=== PATIENT | female | born 1965 | race Caucasian/White ===

== ENCOUNTER 2020-06-26 19:08 | Observation (INO) | payer BC ==
--- NOTE | 2020-06-26 20:40 | ED ---
General Adult HPI - General Chief complaint: Overdose Stated complaint: Overdose Time Seen by Provider: 06/26/20 20:29 Source: patient Mode of arrival: wheelchair Limitations: no limitations - History of Present Illness Initial comments: Dictation was produced using [email or web address] dictation software. please excuse any grammatical, word or spelling errors. This patient was cared for during a federal and state declared state of emergency secondary to Covid 19 Chief Complaint: 54-year-old female presents to the emergency department for suicidal attempt. History of Present Illness: As a 54-year-old female she presents today after a suicidal attempt. Patient states she overdosed on some of her medications. States she took a handful of her psychiatric pills and muscle relaxant pills.Patient reports she took 6 tizanidine 4 mg pills and 61 mg clonazepam pills along with a lot of wine at approximately 5 PM. She also had some white on top of that. Patient states she is done with life. Patient's history of bipolar disease. Denies any homicidal ideation. No visual auditory hallucinations. The ROS documented in this emergency department record has been reviewed and confirmed by me. Those systems with pertinent positive or negative responses have been documented in the HPI. All other systems are other negative and/or noncontributory. PHYSICAL EXAM: General Impression: Alert and oriented x3, not in acute distress HEENT: Normocephalic atraumatic, extra-ocular movements intact, pupils equal and reactive to light bilaterally, mucous membranes moist. Cardiovascular: Heart regular rate and rhythm Chest: Able to complete full sentences, no retractions, no tachypnea Abdomen: abdomen soft, non-tender, non-distended, no organomegaly Musculoskeletal: Pulses present and equal in all extremities, no peripheral edema Motor: no focal deficits noted Neurological: CN II-XII grossly intact, no focal motor or sensory deficits noted Skin: Intact with no visualized rashes Psych: Tearful, depressed ED course: 54-year-old male presents with overdose. Vital signs upon arrival are within acceptable limits. Physical examination not revealing for any specific toxidrome. EKG interpretation: Ventricular rate 68, normal sinus rhythm,. Interval 194, QRS 80, QTc 440. No MN prolongation, no QTC prolongation, no ST or T-wave changes noted. Overall, this EKG is unremarkable plus control was contacted. They recommend observing patient until 12 AM. Patient does not have any osmolar gap. Initial lactic acidosis 5.1. Patient given intravenous fluids. Repeat lactic acid level was obtained with a measurement of 4.3. Considering that patient still has persistent lactic acidosis without patient admitted to hospitalists for further care. Psychiatry will be consulted for suicidal ideation. EKG interpretation: Ventricular rate 80, normal sinus rhythm,. Interval 94, QRS 80, QTc 440. No MN prolongation, no QTC prolongation, no ST or T-wave changes noted. . Overall, this EKG is unremarkable - Related Data Home Medications Medication Instructions Recorded Confirmed Acetaminophen Tab [Tylenol Tab] 1,000 mg PO Q6HR 04/21/16 04/26/16 Atorvastatin [Lipitor] 40 mg PO HS 04/21/16 04/26/16 Citalopram Hydrobromide 40 mg PO DAILY 04/21/16 04/26/16 [Citalopram HBr] Lansoprazole 30 mg PO DAILY 04/21/16 04/26/16 metFORMIN HCL [Glucophage] 1,000 mg PO BID 04/21/16 04/26/16 Previous Rx's Medication Instructions Recorded Aspirin 325 mg PO BID #60 tab 04/28/16 Hydrocodone/Acetaminophen [[place] 1 - 2 each PO Q6HR PRN #90 tab 04/28/16 5-325] Sennosides-Docusate Sodium 2 tab PO DAILY #60 tablet 04/28/16 [Senokot-S] Allergies Allergy/AdvReac Type Severity Reaction Status Date / Time No Known Allergies Allergy Verified 04/21/16 13:39 Review of Systems ROS Statement: Those systems with pertinent positive or pertinent negative responses have been documented in the HPI. ROS Other: All systems not noted in ROS Statement are negative. Past Medical History Past Medical History: Cancer, Diabetes Mellitus, GERD/Reflux, Hyperlipidemia, Osteoarthritis (OA) Additional Past Medical History / Comment(s): HX SKIN CANCER History of Any Multi-Drug Resistant Organisms: None Reported Past Surgical History: Section, Hysterectomy, Orthopedic Surgery Additional Past Surgical History / Comment(s): ORIF RT ANKLE X 2 Past Anesthesia/Blood Transfusion Reactions: No Reported Reaction Past Psychological History: Bipolar Smoking Status: Current some day smoker Past Alcohol Use History: Occasional Past Drug Use History: None Reported - Past Family History Mother Family Medical History: Cancer General Exam Limitations: no limitations Course Vital Signs 06/26/20 06/26/2021 19:40 20:50 22:00 Temperature 97.7 F Pulse Rate 79 73 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 ] Respiratory 18 18 Rate Blood Pressure 102/66 101/63 O2 Sat by Pulse 97 96 Oximetry Medical Decision Making - Lab Data Result diagrams: 06/26/20 21:01 06/26/20 21:01 Lab Results 06/26/20 06/26/20 06/26/20 Range/Units 21:01 21: 21:01 WBC 7.5 (3.8-10.6) k/uL RBC 4.23 (3.80-5.40) m/uL Hgb 12.5 (11.4-16.0) gm/dL Hct 38.8 (34.0-46.0) % MCV 91.7 (80.0-100.0) fL MCH 29.6 (25.0-35.0) pg MCHC 32.3 (31.0-37.0) g/dL RDW 13.7 (11.5-15.5) % Plt Count 247 (150-450) k/uL MPV 7.4 Neutrophils % 49 % Lymphocytes % 41 % Monocytes % 4 % Eosinophils % 4 % Basophils % 0 % Neutrophils # 3.6 (1.3-7.7) k/uL Lymphocytes # 3.1 (1.0-4.8) k/uL Monocytes # 0.3 (0-1.0) k/uL Eosinophils # 0.3 (0-0.7) k/uL Basophils # 0.0 (0-0.2) k/uL PT 10.3 (9.0-12.0) sec INR 1.0 (<1.2) APTT 24.2 (22.0-30.0) sec Sodium 135 L (137-145) mmol/L Potassium 4.4 (3.5-5.1) mmol/L Chloride 104 (98-107) mmol/L Carbon Dioxide 18 L (22-30) mmol/L Anion Gap 13 mmol/L BUN 16 (7-17) mg/dL Creatinine 0.63 (0.52-1.04) mg/dL Est GFR (CKD-EPI)AfAm >90 (>60 ml/min/1.73 sqM) Est GFR (CKD-EPI)NonAf >90 (>60 ml/min/1.73 sqM) Glucose 91 (74-99) mg/dL Osmolality 301 (280-301) mosm/kg Lactic Ac Sepsis Rflx Plasma Lactic Acid Wade (0.7-2.0) mmol/L Calcium 9.7 (8.4-10.2) mg/dL Magnesium 1.6 (1.6-2.3) mg/dL Total Bilirubin 0.2 (0.2-1.3) mg/dL AST 23 (14-36) U/L ALT 26 (4-34) U/L Alkaline Phosphatase 59 (38-126) U/L Total Protein 7.0 (6.3-8.2) g/dL Albumin 4.2 (3.5-5.0) g/dL Salicylates <1.0 mg/dL Acetaminophen <10.0 ug/mL Serum Alcohol 73 mg/dL 06/26/20 06/26/20 06/26/20 Range/Units 21:01 21:24 23:04 WBC (3.8-10.6) k/uL RBC (3.80-5.40) m/uL Hgb (11.4-16.0) gm/dL Hct (34.0-46.0) % MCV (80.0-100.0) fL MCH (25.0-35.0) pg MCHC (31.0-37.0) g/dL RDW (11.5-15.5) % Plt Count (150-450) k/uL MPV Neutrophils % % Lymphocytes % % Monocytes % % Eosinophils % % Basophils % % Neutrophils # (1.3-7.7) k/uL Lymphocytes # (1.0-4.8) k/uL Monocytes # (0-1.0) k/uL Eosinophils # (0-0.7) k/uL Basophils # (0-0.2) k/uL PT (9.0-12.0) sec INR (<1.2) APTT (22.0-30.0) sec Sodium (137-145) mmol/L Potassium (3.5-5.1) mmol/L Chloride (98-107) mmol/L Carbon Dioxide (22-30) mmol/L Anion Gap mmol/L BUN (7-17) mg/dL Creatinine (0.52-1.04) mg/dL Est GFR (CKD-EPI)AfAm (>60 ml/min/1.73 sqM) Est GFR (CKD-EPI)NonAf (>60 ml/min/1.73 sqM) Glucose (74-99) mg/dL Osmolality (280-301) mosm/kg Lactic Ac Sepsis Rflx Y Plasma Lactic Acid Wade 5.1 H* 4.3 H* (0.7-2.0) mmol/L Calcium (8.4-10.2) mg/dL Magnesium (1.6-2.3) mg/dL Total Bilirubin (0.2-1.3) mg/dL AST (14-36) U/L ALT (4-34) U/L Alkaline Phosphatase (38-126) U/L Total Protein (6.3-8.2) g/dL Albumin (3.5-5.0) g/dL Salicylates mg/dL Acetaminophen ug/mL Serum Alcohol mg/dL Disposition Clinical Impression: Lactic acidosis Disposition: ADMITTED IP TO THIS HOSP Condition: Fair Referrals: Mariposa Willingham DO [Primary Care Provider] - 1-2 days Decision Time: 23:58
[2020-06-26 21:11] LABS: Basophils % (A) 0 %; Eosinophils # (A) 0.3 k/uL (0-0.7); Eosinophils % (A) 4 %; HCT 38.8 % (34.0-46.0); HGB 12.5 gm/dL (11.4-16.0); Lymphocytes # (A) 3.1 k/uL (1.0-4.8); Lymphocytes % (A) 41 %; MCH 29.6 pg (25.0-35.0); MCHC 32.3 g/dL (31.0-37.0); MCV 91.7 fL (80.0-100.0); Mean Platelet Volume 7.4; Monocytes # (A) 0.3 k/uL (0-1.0); Monocytes % (A) 4 %; Neutrophils # (A) 3.6 k/uL (1.3-7.7); Neutrophils % (A) 49 %; Platelet Count 247 k/uL (150-450); RBC 4.23 m/uL (3.80-5.40); RDW 13.7 % (11.5-15.5); WBC 7.5 k/uL (3.8-10.6)
[2020-06-26 21:20] LABS: ALT 26 U/L (4-34); AST 23 U/L (14-36); Acetaminophen <10.0 ug/mL; African American GFR (CKD) >90 (>60 ml/min/1.73 sqM); Albumin 4.2 g/dL (3.5-5.0); Alcohol 73 mg/dL; Alkaline Phosphatase 59 U/L (38-126); Anion Gap 13 mmol/L; Blood Urea Nitrogen 16 mg/dL (7-17); Calcium 9.7 mg/dL (8.4-10.2); Carbon Dioxide 18 mmol/L (22-30); Chloride 104 mmol/L (98-107); Glucose 91 mg/dL (74-99); Magnesium 1.6 mg/dL (1.6-2.3); Non-African American GFR(CKD) >90 (>60 ml/min/1.73 sqM); Potassium 4.4 mmol/L (3.5-5.1); Salicylate <1.0 mg/dL; Sodium 135 mmol/L (137-145); Total Bilirubin 0.2 mg/dL (0.2-1.3)
[2020-06-26 21:26] LABS: Partial Thromboplastin Time 24.2 sec (22.0-30.0); Prothrombin Time 10.3 sec (9.0-12.0)
[2020-06-26] MEDS ORDERED: SODIUM CHLORIDE 0.9% 1,000 ML IV STA ×2 (21:51→23:56)
[2020-06-26] MEDS: SODIUM CHLORIDE 0.9% 1,000 ML IV SCH (23:45)
[2020-06-26] MEDS ORDERED: NALOXONE 0.4 MG/ML 1 ML VIAL IV PRN (23:58)
[2020-06-27 01:49] LABS: Amphetamine Screen,Urine Not Detected (NotDetected); Barbiturate Screen,Urine Not Detected (NotDetected); Benzodiazepines Screen,Urine Detected (NotDetected); Cocaine Screen,Urine Not Detected (NotDetected); Methadone Screen, Urine Not Detected (NotDetected); Opiate Screen,Urine Not Detected (NotDetected); Oxycodone Screen, Urine Not Detected (NotDetected); Phencyclidine Screen,Urine Not Detected (NotDetected); Tricyclic Antidepressant,Urine Not Detected (NotDetected); Urn Cannabinoid Scrn Not Detected (NotDetected)
[2020-06-27] MEDS: SODIUM CHLORIDE 0.9% 1,000 ML IV SCH ×2 (09:06→19:00)
[2020-06-27] MEDS ORDERED: HYDROcodone/APAP 5-325MG 1 EACH TAB PO PRN (11:40)
[2020-06-27] MEDS ORDERED: CITALOPRAM HYDROBROMIDE 20 MG TAB PO SCH (11:45)
[2020-06-27] MEDS ORDERED: SENNOSIDES-DOCUSATE SODIUM 1 EACH TAB PO SCH (11:45)
[2020-06-27] MEDS: metFORMIN 500 MG TAB PO SCH ×2 (13:15→20:53)
[2020-06-27] MEDS: ASPIRIN 325 MG TAB PO SCH ×2 (13:16→20:52)
[2020-06-27] MEDS: ACETAMINOPHEN TAB 500 MG TAB PO SCH ×2 (13:16→17:33)
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
--- NOTE | 2020-06-27 16:13 | P.DS ---
Providers Date of admission: 06/26/20 23:58 Attending physician: Talya Otero Consults: 06/27/20 00:00 Consult Physician Routine Consulting Provider: Joni Bocanegra Consult Reason/Comments: suicidal attempt Do you want consulting provider notified?: Yes Primary care physician: Mariposa Willingham [place] Course: Please refer to my history of present illness for further details Patient Condition at Discharge: Fair Plan - Discharge Summary Discharge Rx Participant: No New Discharge Prescriptions: New sitaGLIPtin PHOSPHATE [Januvia] 50 mg PO DAILY #30 tab Discontinued metFORMIN HCL [Glucophage] 1,000 mg PO BID No Action Acetaminophen Tab [Tylenol Tab] 1,000 mg PO Q6HR Lansoprazole 30 mg PO DAILY Atorvastatin [Lipitor] 40 mg PO HS Citalopram Hydrobromide [Citalopram HBr] 40 mg PO DAILY Aspirin 325 mg PO BID #60 tab Hydrocodone/Acetaminophen [[place] 5-325] 1 - 2 each PO Q6HR PRN #90 tab PRN Reason: Pain Sennosides-Docusate Sodium [Senokot-S] 2 tab PO DAILY #60 tablet Discharge Medication List Acetaminophen Tab [Tylenol Tab] 1,000 mg PO Q6HR 04/21/16 [History] Atorvastatin [Lipitor] 40 mg PO HS 04/21/16 [History] Citalopram Hydrobromide [Citalopram HBr] 40 mg PO DAILY 04/21/16 [History] Lansoprazole 30 mg PO DAILY 04/21/16 [History] Aspirin 325 mg PO BID #60 tab 04/28/16 [Rx] Hydrocodone/Acetaminophen [[place] 5-325] 1 - 2 each PO Q6HR PRN #90 tab 04/28/16 [Rx] Sennosides-Docusate Sodium [Senokot-S] 2 tab PO DAILY #60 tablet 04/28/16 [Rx] sitaGLIPtin PHOSPHATE [Januvia] 50 mg PO DAILY #30 tab 06/27/20 [Rx] Follow up Appointment(s)/Referral(s): Mariposa Willingham DO [Primary Care Provider] - 07/03/20 2:00 pm Discharge Disposition: TRANSFER TO PSYCH HOSP/UNIT
--- NOTE | 2020-06-27 16:13 | P.HPIM ---
History of Present Illness As a 54-year-old female came to ER yesterday after a suicidal attempt. Patient states she overdosed on some of her medications. States she took a handful of her psychiatric pills and muscle relaxant pills.Patient reports she took 6 tizanidine 4 mg pills and 61 mg clonazepam pills along with a lot of wine at approximately 5 PM. She also had some white on top of that. Patient states she is done with life. Patient's history of bipolar disease. Denies any homicidal ideation. No visual auditory hallucinations. Patient was apparently manic earlier today morning. Patient is found to have lactic acidosis and patient does have history of of this medicine patient is on the metformin. Patient is clinically doing well patient is a very pleasant doesn't have suicidal ideations anymore. Patient was evaluated by psychiatric and they're recommending inpatient psychiatric admission. Patient lactic acidosis probably secondary to metformin. No evidence of infection at this time. Patient is more medically stable. Review of Systems REVIEW OF SYSTEMS: CONSTITUTIONAL: No fever, no malaise, no fatigue. HEENT: No recent visual problems or hearing problems. Denied any sore throat. CARDIOVASCULAR: No chest pain, orthopnea, PND, no palpitations, no syncope. PULMONARY: No shortness of breath, no cough, no hemoptysis. GASTROINTESTINAL: No diarrhea, no nausea, no vomiting, no abdominal pain. NEUROLOGICAL: No headaches, no weakness, no numbness. HEMATOLOGICAL: Denies any bleeding or petechiae. GENITOURINARY: Denies any burning micturition, frequency, or urgency. MUSCULOSKELETAL/RHEUMATOLOGICAL: Denies any joint pain, swelling, or any muscle pain. ENDOCRINE: Denies any polyuria or polydipsia. The rest of the 14-point review of systems is negative. Past Medical History Past Medical History: Cancer, Diabetes Mellitus, GERD/Reflux, Hyperlipidemia, Osteoarthritis (OA) Additional Past Medical History / Comment(s): HX SKIN CANCER History of Any Multi-Drug Resistant Organisms: None Reported Past Surgical History: Section, Hysterectomy, Orthopedic Surgery Additional Past Surgical History / Comment(s): ORIF RT ANKLE X 2 Past Anesthesia/Blood Transfusion Reactions: No Reported Reaction Past Psychological History: Bipolar Smoking Status: Never smoker Past Alcohol Use History: Occasional Additional Past Alcohol Use History / Comment(s): SMOKES 1PPD SINCE AGE 13 Past Drug Use History: None Reported - Past Family History Mother Family Medical History: Cancer Medications and Allergies Home Medications Medication Instructions Recorded Confirmed Type Acetaminophen Tab [Tylenol Tab] 1,000 mg PO Q6HR 04/21/16 06/27/20 History Atorvastatin [Lipitor] 40 mg PO HS 04/21/16 06/27/20 History Citalopram Hydrobromide 40 mg PO DAILY 04/21/16 06/27/20 History [Citalopram HBr] Lansoprazole 30 mg PO DAILY 04/21/16 06/27/20 History Aspirin 325 mg PO BID #60 tab 04/28/16 06/27/20 Rx Hydrocodone/Acetaminophen [[place] 1 - 2 each PO Q6HR PRN #90 tab 04/28/16 06/27/20 Rx 5-325] Sennosides-Docusate Sodium 2 tab PO DAILY #60 tablet 04/28/16 06/27/20 Rx [Senokot-S] sitaGLIPtin PHOSPHATE [Januvia] 50 mg PO DAILY #30 tab 06/27/20 Rx Allergies Allergy/AdvReac Type Severity Reaction Status Date / Time No Known Allergies Allergy Verified 04/21/16 13:39 Physical Exam Vitals: Vital Signs Temp Pulse Pulse Resp BP BP Pulse Ox 06/27/20 11:44 97.8 F 69 16 132/70 96 06/27/20 02:00 68 16 104/66 95 06/27/20 00:00 63 16 92/54 96 06/26/20 22:00 73 18 101/63 96 06/26/20 20:50 69 06/26/20 19:40 97.7 F 79 18 102/66 97 Intake and Output 06/27/20 06/27/20 06/27/20 06:59 14:59 22:59 Intake Total 200 Balance 200 Intake: Oral 200 Other: Weight 104.326 kg PHYSICAL EXAMINATION: GENERAL: The patient is alert and oriented x3, not in any acute distress. Well developed, well nourished. HEENT: Pupils are round and equally reacting to light. EOMI. No scleral icterus. No conjunctival pallor. Normocephalic, atraumatic. No pharyngeal erythema. No thyromegaly. CARDIOVASCULAR: S1 and S2 present. No murmurs, rubs, or gallops. PULMONARY: Chest is clear to auscultation, no wheezing or crackles. ABDOMEN: Soft, nontender, nondistended, normoactive bowel sounds. No palpable organomegaly. MUSCULOSKELETAL: No joint swelling or deformity. EXTREMITIES: No cyanosis, clubbing, or pedal edema. NEUROLOGICAL: Gross neurological examination did not reveal any focal deficits. SKIN: No rashes. Results CBC & Chem 7: 06/26/20 21:06/26/20 21:01 Labs: Abnormal Lab Results - Last 24 Hours (Table) 06/26/20 06/26/20 06/26/20 Range/Units 21:01 21:01 23:04 Sodium 135 L (137-145) mmol/L Carbon Dioxide 18 L (22-30) mmol/L Plasma Lactic Acid Wade 5.1 H* 4.3 H* (0.7-2.0) mmol/L U Benzodiazepines Scrn (NotDetected) 06/26/20 06/27/20 Range/Units 23:52 01:30 Sodium (137-145) mmol/L Carbon Dioxide (22-30) mmol/L Plasma Lactic Acid Wade 3.9 H* (0.7-2.0) mmol/L U Benzodiazepines Scrn Detected H (NotDetected) Thrombosis Risk Factor Assmnt - Choose All That Apply Each Factor Represents 1 point: Age 41-60 years Other Risk Factors: No Other congenital or acquired thrombophilia - If yes, enter type in comment: No Thrombosis Risk Factor Assessment Total Risk Factor Score: 1 Thrombosis Risk Factor Assessment Level: Low Risk Assessment and Plan Plan: Interventional overdose: Patient doesn't have any QT prolonging patient patient clinically looks well and medically stable to be discharged to psychiatric floor. -Lactic acidosis secondary to metformin which will be discontinued and patient will be started on Januvia for diabetes mellitus -Gastroesophageal reflux disease -Hyperlipidemia -Depression and suicidal ideation: Management as per psychiatry and patient is medically stable to be discharged to psychiatric floor. Patient is willing to go there voluntarily.
[2020-06-27 16:21] VITALS: BP 111/70; PULSE 88; TEMP 98.5
[2020-06-27] MEDS ORDERED: ATORVASTATIN 40 MG TAB PO SCH (21:00)
[2020-06-27 22:15] VITALS: RESP 18
[2020-06-28] MEDS ORDERED: PANTOPRAZOLE 40 MG TABLET PO SCH (07:30)
[2020-06-28] MEDS ORDERED: CITALOPRAM HYDROBROMIDE 20 MG TAB PO SCH (09:00)
== END 2020-06-27 22:04 ==
LOC: EC 19:08 → 6NMEDSUR 23:58
PROVIDERS: ADMIT Internal Medicine; ATTEND Internal Medicine
DX: E87.2 Acidosis (principal); T38.3X5A Adverse effect of insulin and oral hypoglycemic [antidiabetic] drugs, initial encounter; T14.91XA Suicide attempt, initial encounter; T42.8X2A Poisoning by antiparkinsonism drugs and other central muscle-tone depressants, intentional self-harm, initial encounter; T42.4X2A Poisoning by benzodiazepines, intentional self-harm, initial encounter; F31.60 Bipolar disorder, current episode mixed, unspecified; E11.9 Type 2 diabetes mellitus without complications; K21.9 Gastro-esophageal reflux disease without esophagitis; E78.5 Hyperlipidemia, unspecified; M19.90 Unspecified osteoarthritis, unspecified site; F22 Delusional disorders; F17.210 Nicotine dependence, cigarettes, uncomplicated; Z79.899 Other long term (current) drug therapy; Z79.82 Long term (current) use of aspirin; Z79.84 Long term (current) use of oral hypoglycemic drugs; Z85.828 Personal history of other malignant neoplasm of skin; Z98.890 Other specified postprocedural states; Z90.710 Acquired absence of both cervix and uterus; Z91.5 Personal history of self-harm; Z91.410 Personal history of adult physical and sexual abuse; Z80.9 Family history of malignant neoplasm, unspecified; Z81.8 Family history of other mental and behavioral disorders; Y92.9 Unspecified place or not applicable
CPT/HCPCS: 82075; 96360; 96361; 99285; 36415 ×2; 93005; 83930; 80053; 83605 ×2; 83735; 85025; 85610; 85730; 80306; 83520; 80143; 80320; G0378

== ENCOUNTER 2020-06-27 21:56 | Inpatient (IN) | payer BC ==
[2020-06-27] MEDS ORDERED: MAG HYDROX/AL HYDROX/SIMETH 30 ML CUP PO PRN (22:04)
[2020-06-28 08:50] LABS: Cholesterol 206 mg/dL (<200); HDL Cholesterol 46 mg/dL (40-60); LDL Cholesterol,Calculated 109 mg/dL (0-99); Triglycerides 257 mg/dL (<150)
[2020-06-28] MEDS: LINAGLIPTIN 5 MG TABLET PO SCH ×3 (08:51→10:05)
[2020-06-28] MEDS: ASPIRIN 325 MG TAB PO SCH ×2 (08:51→20:58)
[2020-06-28] MEDS ORDERED: NICOTINE 14MG/24HR PATCH TRANSDERM SCH (09:00)
[2020-06-28] MEDS ORDERED: CITALOPRAM HYDROBROMIDE 20 MG TAB PO SCH (09:00)
[2020-06-28] MEDS: SENNOSIDES-DOCUSATE SODIUM 1 EACH TAB PO SCH (09:11)
--- NOTE | 2020-06-28 11:19 | P.HP ---
Psychiatric H&P - . H&P Date: 06/28/20 History & Physical: IDENTIFYING DATA: Jacqueline is a 54-year-old male transferred from medicine unit voluntarily. HISTORY OF PRESENT ILLNESS: Her sister brought her to the emergency center concerns that she overdosed on prescription medications and alcohol. She stated that she took pills and drinks some wine after a distressing conversation with her [id number]. She dramatically described a conflictual relationship with her kczswy-[id number]-rks. On day of admission her [id number]-[id number] criticized her decision regarding her 's recent hospitalization. Immediately after the telephone conversation she took the medication and drink wine. She told a girlfriend about her actions who in turn told he rssergo in [place] who told her sister in [place] who came to the house and brought her to the hospital. She acknowledges that she took the pills and drinks wine with thoughts of ending her life. She described an impulsive action and denied that she had thought about suicide or self-harm per the conversation with her [id number]. She does have a history of prior suicide attempts by overdose.During our interview she let she could not remember what she had taken she talked about "taking little bit of this and appropriate affect." In the medical admission note she took approximately 24 mg tizanidine and 61 mg a of clonazepam. On presentation to the ED her UDS was positive for benzodiazepine and a serum alcohol level was 73. She has a history of a bipolar illness. She complained that she is primarily depressed but noticed a change in her mood beginning 3 or 4 months ago. She stated she became more upbeat and active. She began showering every day, regained interest in sex and was able to enjoy herself. In retrospect, he stated that she also became more irritable. She also began to steal items over this period of time. She talked about taking random items such as holiday cards and another example a sweater from [employer]. These are items that she could easily afford. She talked about becoming excited that the thought of stealing from the department store. She denied experiencing psychotic symptoms such as hallucinations, confusion or paranoia. She denied persistent use of alcohol and denied use of drugs to get high, help her sleep or change her mood. She was started on citalopram while she was on medicine unit. She stated that she had been treated with citalopram in the past and it was not effective. Prior to admission her outpatient psychiatrist was prescribing Prozac 80 mg daily. PAST PSYCHIATRIC HISTORY: She appears to have while the established diagnoses bipolar illness and has been treated for this diagnosis for approximately 30 years. She first received mental health services when she was an adolescent. She has had 3 or 4 prior psychiatric hospitalizations. Interestingly, she appears not to have been treated with mood stabilizers including lithium, Depakote, Tegretol, Lamictal or any of the second-generation antipsychotics. She meets with a private psychiatrist and a counselor through the [facility] in [facility]. Her psychiatrist apparently increased her antidepressant, Prozac, to 80 mg per day prior to the onset of the apparent hypomanic episode. PAST MEDICAL HISTORY: See medical history and physical ALLERGIES: NO KNOWN DRUG ALLERGIES SUBSTANCE USE HISTORY: She talked about a history of marijuana and hallucinogen abuse. She was admitted to a private substance abuse treatment program in [facility] when she was 26 years old. She denied the use of drugs with the exception of occasional alcohol since she was in the program. FAMILY PSYCHIATRIC/SUBSTANCE USE HISTORY: She is a family history of a depressive disorders LEGAL HISTORY: Denied SOCIAL HISTORY: She is bored or recent intact family. She has 3 sisters. She left school when she was 17 and talked about her struggles with eventually obtaining her high school diploma. She has 2 children from her first marriage. She's been to her current 21 years. 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 MENTAL STATUS EXAM: She presented as a tall casually groomed. He 54-year-old female who looked younger than stated age. She made eye contact and attended the interview. She had no distinguishing features or prominent physical abnormalities. She had a right facial expression. She was alert and oriented to person, place and time. She showed no abnormality of psychomotor activity. She is not restless or agitated. Her speech was spontaneous with increased rate and rhythm. Her speech was not pressured. Her affect was elevated and slightly irritable but appropriate his. She denied current suicidal ideation or wishes. She denied homicidal ideation. She did not express feelings of hopelessness, helplessness or worthlessness. She ruminated about circumstances that this hospitalization her struggles with the maintaining a "normal" mood. She did not express ideas reference, paranoid ideation or delusions. Her thinking was abstract and associations were coherent, logical and goal directed. She denied express clang associations, perseveration or neologisms. She denied hallucinations did not appear to responding to internal stimuli. Global impression of intellect is average. She is aware of illness and need for treatment. STRENGTHS: Stable housing, stable income, supportive relationships, engagement with mental health services WEAKNESSES: Long history of mental health and mental health treatment IMPRESSION: She is a 54-year-old female presented to the psychiatric unit on transfer from the medicine unit where she was treated or a suicide attempt by overdose of alcohol and prescription medications. She has a long history of mental health problems beginning in adolescence with several prior hospitalizations. She described a change her mood over the last 3-4 months prior to admission that may coincide with a increased dose of her antidepressant. She described symptoms suggestive of a hypomanic episode with increased energy, activity and engagement in behaviors that could result in legal consequences. The suicide attempt was impulsive following an argument with her [id number]. She benefit from inpatient treatment with combination of psychopharmacology and multimodal therapy. 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 Seek precautions. Consult medicine for initial physical exam and medical history. child care worker completed initial psychosocial assessment coordinate discharge and aftercare. Restart Prozac 20 mg daily, discontinue citalopram, begin Lamictal 25 mg daily and titrated to clinical response and tolerance. Encourage participation in therapeutic groups and activities. Evaluate clinical status response to treatment daily basis. Allergies Allergy/AdvReac Type Severity Reaction Status Date / Time No Known Allergies Allergy Verified 06/27/20 23:45 Vital Signs Temp 97.2 F L 06/28/20 06:04 Pulse 59 L 06/28/20 06:04 Resp 16 06/27/20 22:39 BP 146/65 06/28/20 06:04 Pulse Ox 98 06/27/20 22:39 Intake & Output 06/27/20 06/28/20 06/28/20 18:59 06:59 18:59 Weight 93.468 kg Laboratory Last Values Triglycerides 257 mg/dL (<150) H 06/28/20 07:51 Cholesterol 206 mg/dL (<200) H 06/28/20 07:51 LDL Cholesterol, Calc 109 mg/dL (0-99) H 06/28/20 07:51 HDL Cholesterol 46 mg/dL (40-60) 06/28/20 07:51 Coronavirus (PCR) Not Detected (Not Detectd) 06/28/20 00:00 06/28/20 10:53
[2020-06-28] MEDS: lamoTRIgine 25 MG TAB PO SCH (12:07)
--- NOTE | 2020-06-28 14:00 | P.CONS ---
History of Present Illness - Reason for Consult Medical clearance - History of Present Illness Patient is pleasant 54-year-old female was transferred from my service to psychiatric floor. after she attempted suicide with multiple medications. Patient is comparing of some fatigue beyond that patient denied any fever chills nausea vomiting abdominal pain dysuria. Patient says she does have history of coronary artery disease and that did have stents in the past. Review of Systems REVIEW OF SYSTEMS: CONSTITUTIONAL: No fever, no malaise. HEENT: No recent visual problems or hearing problems. Denied any sore throat. CARDIOVASCULAR: No chest pain, orthopnea, PND, no palpitations, no syncope. PULMONARY: No shortness of breath, no cough, no hemoptysis. GASTROINTESTINAL: No diarrhea, no nausea, no vomiting, no abdominal pain. NEUROLOGICAL: No headaches, no weakness, no numbness. HEMATOLOGICAL: Denies any bleeding or petechiae. GENITOURINARY: Denies any burning micturition, frequency, or urgency. MUSCULOSKELETAL/RHEUMATOLOGICAL: Denies any joint pain, swelling, or any muscle pain. ENDOCRINE: Denies any polyuria or polydipsia. The rest of the 14-point review of systems is negative. Past Medical History Past Medical History: Cancer, Diabetes Mellitus, GERD/Reflux, Hyperlipidemia, Osteoarthritis (OA) Additional Past Medical History / Comment(s): HX SKIN CANCER History of Any Multi-Drug Resistant Organisms: None Reported Past Surgical History: Section, Heart Catheterization With Stent, Hysterectomy, Orthopedic Surgery Additional Past Surgical History / Comment(s): ORIF RT ANKLE X 2, total left hip 2017 Past Anesthesia/Blood Transfusion Reactions: No Reported Reaction Date of Last Stent Placement:: 2017 Past Psychological History: Bipolar Smoking Status: Never smoker Past Alcohol Use History: Occasional Past Drug Use History: None Reported - Past Family History Mother Family Medical History: Cancer Medications and Allergies Home Medications Medication Instructions Recorded Confirmed Type Acetaminophen Tab [Tylenol Tab] 1,000 mg PO Q6HR 04/21/16 06/27/20 History Atorvastatin [Lipitor] 40 mg PO HS 04/21/16 06/27/20 History Citalopram Hydrobromide 40 mg PO DAILY 04/21/16 06/27/20 History [Citalopram HBr] Lansoprazole 30 mg PO DAILY 04/21/16 06/27/20 History Aspirin 325 mg PO BID #60 tab 04/28/16 06/27/20 Rx Hydrocodone/Acetaminophen [Jasper 1 - 2 each PO Q6HR PRN #90 tab 04/28/16 06/27/20 Rx 5-325] Sennosides-Docusate Sodium 2 tab PO DAILY #60 tablet 04/28/16 06/27/20 Rx [Senokot-S] sitaGLIPtin PHOSPHATE [Januvia] 50 mg PO DAILY #30 tab 06/27/20 06/27/20 Rx Allergies Allergy/AdvReac Type Severity Reaction Status Date / Time No Known Allergies Allergy Verified 06/27/20 23:45 Physical Exam Vitals: Vital Signs Temp Pulse Resp BP Pulse Ox 06/28/20 06:04 97.2 F L 59 L 146/65 06/27/20 22:39 97.8 F 67 16 121/79 98 Intake and Output 06/27/20 06/28/20 06/28/20 22:59 06:59 14:59 Other: Weight 93.468 kg PHYSICAL EXAMINATION: GENERAL: The patient is alert and oriented x3, not in any acute distress. Well developed, well nourished. HEENT: Pupils are round and equally reacting to light. EOMI. No scleral icterus. No conjunctival pallor. Normocephalic, atraumatic. No pharyngeal erythema. No thyromegaly. CARDIOVASCULAR: S1 and S2 present. No murmurs, rubs, or gallops. PULMONARY: Chest is clear to auscultation, no wheezing or crackles. ABDOMEN: Soft, nontender, nondistended, normoactive bowel sounds. No palpable organomegaly. MUSCULOSKELETAL: No joint swelling or deformity. EXTREMITIES: No cyanosis, clubbing, or pedal edema. NEUROLOGICAL: Gross neurological examination did not reveal any focal deficits. SKIN: No rashes. Results Labs: Abnormal Lab Results - Last 24 Hours (Table) 06/28/20 Range/Units 07:51 Triglycerides 257 H (<150) mg/dL Cholesterol 206 H (<200) mg/dL LDL Cholesterol, Calc 109 H (0-99) mg/dL Assessment and Plan Plan: -Type 2 diabetes mellitus: Patient will be continued on Januvia Accu-Cheks twice a day -coronary artery disease patient will be started on aspirin 81 mg, statin, isosorbide mononitrate 30 mg daily. Patient was supposed to take metoprolol as well as her heart rate is already in 5060s Minardi much beneficial even post OK. -Hyperlipidemia -Depression and suicide attempt: Management as per primary service
[2020-06-28 14:21] LABS: Hemoglobin A1C 5.9 % (4.0-6.0)
[2020-06-28] MEDS: ACETAMINOPHEN TAB 325 MG TAB PO PRN (17:08)
[2020-06-28] MEDS ORDERED: NAPROXEN 250 MG TAB PO STA ×3 (17:47→18:47)
[2020-06-28] MEDS: ATORVASTATIN 40 MG TAB PO SCH (20:58)
[2020-06-28] MEDS: LORazepam 1 MG TAB PO PRN (21:00)
[2020-06-29 07:49] LABS: Glucose,Whole Blood 92 mg/dL (75-99)
[2020-06-29] MEDS: ISOSORBIDE MONONITRATE ER 30 MG TAB.ER.24H PO SCH (08:08)
[2020-06-29] MEDS: lamoTRIgine 25 MG TAB PO SCH (08:08)
[2020-06-29] MEDS: FLUoxetine HCL 20 MG CAP PO SCH (08:08)
[2020-06-29] MEDS: LINAGLIPTIN 5 MG TABLET PO SCH (08:08)
[2020-06-29] MEDS: ASPIRIN 325 MG TAB PO SCH (08:08)
[2020-06-29] MEDS ORDERED: ASPIRIN 81 MG PO SCH (09:00)
[2020-06-29] MEDS: SENNOSIDES-DOCUSATE SODIUM 1 EACH TAB PO SCH (09:08)
--- NOTE | 2020-06-29 14:40 | P.PN ---
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 She was concerned about medical treatment reviewed the medications recommended when she was discharged from medicine service. She requested to resume her primary admission dose of aspirin. She also questioned why the physicians has discontinued metformin and started Trajenta. She denied feeling depressed or having thoughts of or suicide. She talked about the circumstances that led to her impulsive overdose. She feels that she overreacted to the comments her sister made about his recent hospitalization. She stated that she often "overreacts" when she has "manic". She is attending therapeutic groups and activities. She slept 8 hours last night. Mental status exam: She presented as a tall and stocky 54-year-old woman who was pleasant on approach. She made eye contact and attended the interview. She showed no abnormality of psychomotor activity. Her speech was spontaneous with slight increased rate and rhythm. Her speech was not pressured. Her affect was elevated but not) appropriate. She denied suicidal ideation and wishes. She did not express ideas reference, paranoid ideation or delusions. Her thinking was abstract and associations were coherent, logical and goal directed. She denied hallucinations did not appear to be responding to internal stimuli. Assessment: She continues to have signs and symptoms of hypomania. Plan: Inpatient treatment. Safety precautions. Continue Prozac 20 mg daily and Lamictal 25 mg daily. Titrate the latter according to clinical response and tolerance. Decrease aspirin 81 mg daily. Continue indoor 30 mg daily, Trajenta5 mg daily and Senokot S daily.
[2020-06-29] MEDS: ATORVASTATIN 40 MG TAB PO SCH (19:59)
[2020-06-29] MEDS: LORazepam 1 MG TAB PO PRN (20:00)
[2020-06-29] MEDS ORDERED: NAPROXEN 250 MG TAB PO STA (20:00)
[2020-06-29 20:07] LABS: Glucose,Whole Blood 117 mg/dL (75-99)
[2020-06-29] MEDS: ACETAMINOPHEN TAB 325 MG TAB PO PRN (21:30)
[2020-06-30] MEDS: LORazepam 1 MG TAB PO PRN ×2 (01:59→21:38)
[2020-06-30 07:48] LABS: Glucose,Whole Blood 86 mg/dL (75-99)
[2020-06-30] MEDS: ASPIRIN 81 MG PO SCH (08:48)
[2020-06-30] MEDS: FLUoxetine HCL 20 MG CAP PO SCH (08:48)
[2020-06-30] MEDS: LINAGLIPTIN 5 MG TABLET PO SCH (08:48)
[2020-06-30] MEDS: lamoTRIgine 25 MG TAB PO SCH ×2 (08:48→21:34)
[2020-06-30] MEDS: SENNOSIDES-DOCUSATE SODIUM 1 EACH TAB PO SCH (08:48)
[2020-06-30] MEDS: ISOSORBIDE MONONITRATE ER 30 MG TAB.ER.24H PO SCH (08:48)
[2020-06-30] MEDS ORDERED: NAPROXEN 250 MG TAB PO PRN (10:07)
--- NOTE | 2020-06-30 10:19 | P.PN ---
Progress Note - Text Progress Note Date: 06/30/20 Interval History: Patient was seen attending group and was directable and agreeable to speak with bid writer in the office. Patient reports that she feels like she is slightly better. She does report that she had difficulty sleeping last night. She attributes her difficulty sleeping to her racing thoughts. She continues to express some mood lability and irritability. She does express concern about discharge stating that she wants the symptoms to be better controlled. She is not reporting any suicidal or homicidal ideation, intention, and/or plan. She is denying any auditory or visual hallucinations. She denies any paranoia or delusions. She has been adherent with her medications and is not reporting any significant side effects. We discussed at length treatment options for the management of bipolar disorder, and the patient is agreeable to starting a trial of Seroquel and having her Lamictal titrated. Mental Status Exam: General Appearance: Patient appears to be stated age is alert, directable, and cooperative. Patient is of a tall and stocky build. Good hygiene and grooming. Behavior: Patient is calmly seated without any agitated behavior. Speech: Patient's speech is fluent and nonpressured. Mood/Affect: Mood is "doing great but sleep." affect is congruent, slightly expansive, almost euphoric. Suicidality/Homicidality: Patient is not endorsing any suicidal or homicidal ideation, intention, and/or plan. Perceptions: Patient denies any auditory or visual hallucinations. Though content/process: There is no evidence of any delusional thought content and thought process is linear and goal-directed. Memory and concentration: AOX3, grossly intact for the purposes of this session Judgment and insight: Improving mildly Assessment Bipolar disorder, type II, current episode depressed Plan: -Patient continues to meet criteria for inpatient psychiatric admission for symptom stabilization and safety. Patient has signed adult voluntary form and medication consent and was placed in patient's chart. -Medications: We'll continue Prozac 20 mg by mouth daily for management of depression/anxiety Increase Lamictal to 25 mg by mouth twice a day for management of bipolar disorder We will start Seroquel 50 mg by mouth at bedtime for mood stability As per patient preference, we will increase Aleve to 500 mg as needed for pain. -When necessary Ativan and Haldol for agitation/aggression. -NRT - nicotine patch -SW on board for discharge planning. Encouraged the patient to participate in milieu.
[2020-06-30 19:59] LABS: Glucose,Whole Blood 136 mg/dL (75-99)
[2020-06-30] MEDS ORDERED: QUEtiapine 50 MG TAB PO SCH (21:00)
[2020-06-30] MEDS: ATORVASTATIN 40 MG TAB PO SCH (21:34)
[2020-07-01 06:54] VITALS: RESP 17
[2020-07-01 07:48] LABS: Glucose,Whole Blood 74 mg/dL (75-99)
[2020-07-01] MEDS: ISOSORBIDE MONONITRATE ER 30 MG TAB.ER.24H PO SCH (08:03)
[2020-07-01] MEDS: LINAGLIPTIN 5 MG TABLET PO SCH (08:03)
[2020-07-01] MEDS: SENNOSIDES-DOCUSATE SODIUM 1 EACH TAB PO SCH (08:03)
[2020-07-01] MEDS: lamoTRIgine 25 MG TAB PO SCH (08:03)
[2020-07-01] MEDS: ASPIRIN 81 MG PO SCH (08:03)
[2020-07-01] MEDS: FLUoxetine HCL 20 MG CAP PO SCH (08:03)
[2020-07-01 08:05] VITALS: BP 130/69; PULSE 99
--- NOTE | 2020-07-01 08:06 | P.PN ---
Progress Note - Text Progress Note Date: 07/01/20 Interval History: Patient was seen this morning in the hallways and was directable and agreeable to speak with public relations writer in the office. Patient is stating that she feels much better today in terms of her mood and claims that she was able to sleep better last night. She claims that the Seroquel dose is "good where it's sad". She states that she's been talking with other people on the unit and also going to groups. She states that she has a "million reasons to live" and spoke about her grandchildren and her . She claims that the racing thoughts of been improving. She had several questions about her medications and public relations writer discussed the side effects and rationale for their use. Phlebotomist specifically spoke about the side effect of a rash with Lamictal and warned patient to monitor her skin and seek urgent medical attention if she sees a rash, patient verbally understood and agreed. She is not reporting any suicidal or homicidal ideation, intention, and/or plan. She is denying any auditory or visual hallucinations. She denies any paranoia or delusions. She has been adherent with her medications and is not reporting any significant side effects. Mental Status Exam: General Appearance: Patient appears to be stated age is alert, directable, and cooperative. Patient is of a tall and stocky build. Good hygiene and grooming. Behavior: Patient is calmly seated without any agitated behavior. Speech: Patient's speech is fluent and nonpressured. Mood/Affect: Mood is "better" affect is congruent Suicidality/Homicidality: Patient is not endorsing any suicidal or homicidal ideation, intention, and/or plan. Perceptions: Patient denies any auditory or visual hallucinations. Though content/process: There is no evidence of any delusional thought content and thought process is linear and goal-directed. Memory and concentration: AOX3, grossly intact for the purposes of this session Judgment and insight: Improving mildly Assessment Bipolar disorder, type II, current episode depressed Plan: -Patient continues to meet criteria for inpatient psychiatric admission for symptom stabilization and safety. Patient has signed adult voluntary form and medication consent and was placed in patient's chart. -Medications: Continue Prozac 20 mg by mouth daily for management of depression/anxiety, continue with Lamictal 25 mg by mouth twice a day for management of bipolar disorder, continue Seroquel 50 mg by mouth at bedtime for mood stability -When necessary Ativan and Haldol for agitation/aggression. -NRT - nicotine patch -SW on board for discharge planning. Encouraged the patient to participate in milieu. Patient is set for discharge today back home. Patient follows up at [facility] for psych outpt services. Patients to pick her up today upon discharge.
[2020-07-01 12:44] VITALS: TEMP 98
--- NOTE | 2020-07-03 09:45 | P.DS ---
Providers Date of admission: 06/27/20 21:56 Expected date of discharge: 07/01/20 Attending physician: Joni Bocanegra MD Consults: 06/27/20 22:07 Consult Physician Routine Consulting Provider: Orlando Bledsoe Consult Reason/Comments: h&p and medical management Do you want consulting provider notified?: Yes, Notify in am Primary care physician: Mariposa Begumel - Discharge Diagnosis(es) (1) Bipolar 2 disorder, major depressive episode Status: Acute Priority: High Hospital Course: Admission HPI: Initial psychiatric evaluation was completed by Dr. Espinoza on 06/28/2020 who wrote: "Jacqueline is a 54-year-old male transferred from medicine unit voluntarily. HISTORY OF PRESENT ILLNESS: Her sister brought her to the emergency center concerns that she overdosed on prescription medications and alcohol. She stated that she took pills and drinks some wine after a distressing conversation with her vxgpfc-ug-lrm. She dramatically described a conflictual relationship with her pquffv-rn-mbp. On day of admission her wcyzij-uc-bwg criticized her decision regarding her 's recent hospitalization. Immediately after the telephone conversation she took the medication and drink wine. She told a girlfriend about her actions who in turn told he rsister in [place] who told her sister in [place] who came to the house and brought her to the hospital. She acknowledges that she took the pills and drinks wine with thoughts of ending her life. She described an impulsive action and denied that she had thought about suicide or self-harm per the conversation with her wzlsep-so-eux. She does have a history of prior suicide attempts by overdose.During our interview she let she could not remember what she had taken she talked about "taking little bit of this and appropriate affect." In the medical admission note she took approximately 24 mg tizanidine and 61 mg a of clonazepam. On presentation to the ED her UDS was positive for benzodiazepine and a serum alcohol level was 73. She has a history of a bipolar illness. She complained that she is primarily depressed but noticed a change in her mood beginning 3 or 4 months ago. She stated she became more upbeat and active. She began showering every day, regained interest in sex and was able to enjoy herself. In retrospect, he stated that she also became more irritable. She also began to steal items over this period of time. She talked about taking random items such as holiday cards and another example a sweater from [email or web address]. These are items that she could easily afford. She talked about becoming excited that the thought of stealing from the department store. She denied experiencing psychotic symptoms such as hallucinations, confusion or paranoia. She denied persistent use of alcohol and denied use of drugs to get high, help her sleep or change her mood. She was started on citalopram while she was on medicine unit. She stated that she had been treated with citalopram in the past and it was not effective. Prior to admission her outpatient psychiatrist was prescribing Prozac 80 mg daily." Hospital course: Upon admission to the unit patient was initially calm, cooperative, with an elevated and slightly irritable affect. Patient was however directable and agreeable to commence treatment. Working diagnosis of bipolar disorder with most recent episode being hypomanic versus an antidepressant induced hypomanic episode. The patient was initiated on Lamictal and the patient's Prozac was restarted at 20 mg by mouth daily while citalopram was discontinued. The patient continued to express some irritability and difficulty sleeping and Seroquel was started at bedtime all her Lamictal was gradually titrated. Over the course of the hospitalization, the patient gradually improved in terms of mood stability, sleep, and irritability. On the day of discharge, the patient is not endorsing any suicidal or homicidal ideation, intention, and/or plan. She is reporting no access to firearms or other weapons. She reports that she has been sleeping and eating well. She has been adherent with her medications and is not reporting any significant side effects. She expresses a strong desire to live for her family. The patient has not been endorsing any auditory or visual hallucinations. She reported no delusions or paranoia. The patient was counseled on abstaining from all substances including alcohol and marijuana. She was counseled on the need for compliance on her medication and regular follow-up. Prior to discharge, family meeting will be arranged by the vp digital marketing social media and crm to answer any questions and ensure safety upon discharge. The patient was discharged with a regimen of Lamictal 25 mg by mouth twice a day, Seroquel 50 mg daily at bedtime, Prozac 20 mg by mouth daily for management of bipolar disorder, type II. Mental status exam: General Appearance: Patient appears to be stated age is alert, pleasant, and cooperative. Patient is in no acute distress and has fair hygiene and grooming patient is a very tall and stocky build. Good hygiene and grooming. Behavior: Patient is calmly seated without any agitated behavior. Speech: Patient's speech is fluent and nonpressured. Mood/Affect: Patient reports their mood is "much better", affect is congruent and euthymic to bright. Suicidality/Homicidality: Patient denies having any suicidal or homicidal ideation intent or plan. Perceptions: Patient denies any auditory or visual hallucinations. Though content/process: There is no evidence of any delusional thought content and thought process is linear and goal-directed. She is future oriented. Memory and concentration: AOX3, grossly intact for the purposes of this session. Can spell "WORLD" backwards correctly. Judgment and insight: Improved Impression: Poor disorder, type II, current episode depressed Plan: -Continue with discharge today as patient has improved and stabilized psychiatrically and is not currently an imminent threat to herself and/or others. Patient will remain at chronically elevated risk for harm to self and/or others due to her prior attempt at suicide that led to this admission. -Continue medications: Seroquel 50 mg daily at bedtime for mood stabilization Prozac 20 mg by mouth daily for depression/anxiety Lamictal 25 mg by mouth twice a day for bipolar disorder -Patient was counseled on the need for medication compliance and appropriate follow-up at mental health and also primary care for medical issues. Patient verbalized understanding and agreed. -Social work to arrange for and conduct family meeting to ensure safety upon discharge and answer any questions/concerns. Social work also to arrange for patients follow up appointments [facility] for psychiatric care along with follow up with primary care provider. -Patient counseled on abstaining from recreational drugs and marijuana and alcohol. Was informed/educated on the adverse effects on their physical and mental health. Patient verbally agreed and understood. -Patient was instructed to return to the hospital or seek immediate medical care if their psychiatric or medical symptoms do worsen or reoccur. -Psychoeducation and supportive therapy provided to patient. Risks and benefits of pharmacological treatment versus the risks and benefits of nontreatment weight and discussed. Informed consent discussion held. Common side effects of psychotropics discussed such as, but not limited to headache, GI disturbance, sexual dysfunction, movement disorders, sedation, and orthostatic hypotension. Life threatening and blackbox warnings of prescribed medications also discussed. Potential risks of operating a vehicle or heavy machinery discussed with patient at length. Advised on importance of compliance and a reliable and responsible manner. Patient advised to review FDA consumer labeling of all medications prior to taking. Patient verbalized understanding of potential risks, and agrees with current treatment plan. Patient advised to medically contact physician/emergency personnel if any acute changes in condition occur. Vital Signs Temp 98.0 F 07/01/20 12:00 Pulse 99 07/01/20 08:00 Resp 17 07/01/20 06:53 BP 130/69 07/01/20 08:00 Pulse Ox 97 07/01/20 06:53 Laboratory Results POC Glucose (mg/dL) 74 mg/dL (75-99) L 07/01/20 07:47 POC Glu Crib Pad Maker ID Nona Morris 07/01/20 07:[address] Glu mg/dL 123 06/28/20 07:51 Hemoglobin A1c 5.9 % (4.0-6.0) 06/28/20 07:51 Triglycerides 257 mg/dL (<150) H 06/28/20 07:51 Cholesterol 206 mg/dL (<200) H 06/28/20 07:51 LDL Cholesterol, Calc 109 mg/dL (0-99) H 06/28/20 07:51 HDL Cholesterol 46 mg/dL (40-60) 06/28/20 07:51 Coronavirus (PCR) Not Detected (Not Detectd) 06/28/20 00:00 Allergies Allergy/AdvReac Type Severity Reaction Status Date / Time No Known Allergies Allergy Verified 06/27/20 23:45 Patient Condition at Discharge: Stable Plan - Discharge Summary New Discharge Prescriptions: New Aspirin 81 mg PO DAILY 30 Days chew Isosorbide Mononitrate ER [Imdur] 30 mg PO DAILY 30 Days tab.er.24h lamoTRIgine [LaMICtal] 25 mg PO BID 30 Days tab Atorvastatin [Lipitor] 40 mg PO HS 30 Days tab FLUoxetine HCL [PROzac] 20 mg PO DAILY 30 Days cap QUEtiapine [SEROquel] 50 mg PO HS 30 Days tab Continue Hydrocodone/Acetaminophen [Furlong 5-325] 1 - 2 each PO Q6HR PRN #90 tab PRN Reason: Pain Sennosides-Docusate Sodium [Senokot-S] 2 tab PO DAILY #60 tablet sitaGLIPtin PHOSPHATE [Januvia] 50 mg PO DAILY #30 tab Discontinued Acetaminophen Tab [Tylenol Tab] 1,000 mg PO Q6HR Lansoprazole 30 mg PO DAILY Citalopram Hydrobromide [Citalopram HBr] 40 mg PO DAILY Aspirin 325 mg PO BID #60 tab No Action Atorvastatin [Lipitor] 40 mg PO HS Discharge Medication List Atorvastatin [Lipitor] 40 mg PO HS 04/21/16 [History] Hydrocodone/Acetaminophen [Furlong 5-325] 1 - 2 each PO Q6HR PRN #90 tab 04/28/16 [Rx] Sennosides-Docusate Sodium [Senokot-S] 2 tab PO DAILY #60 tablet 04/28/16 [Rx] Aspirin 81 mg PO DAILY 30 Days chew 06/30/20 [Rx] Atorvastatin [Lipitor] 40 mg PO HS 30 Days tab 06/30/20 [Rx] FLUoxetine HCL [PROzac] 20 mg PO DAILY 30 Days cap 06/30/20 [Rx] Isosorbide Mononitrate ER [Imdur] 30 mg PO DAILY 30 Days tab.er.24h 06/30/20 [Rx] QUEtiapine [SEROquel] 50 mg PO HS 30 Days tab 06/30/20 [Rx] lamoTRIgine [LaMICtal] 25 mg PO BID 30 Days tab 06/30/20 [Rx] sitaGLIPtin PHOSPHATE [Januvia] 50 mg PO DAILY #30 tab 06/30/20 [Rx] Follow up Appointment(s)/Referral(s): [facility] [employer] [Outside] - 07/03/20 1:00 pm ([place]) [facility] [NON-STAFF] - 1 Week Patient Instructions/Handouts: Bipolar Disorder (DC) Activity/Diet/Wound Care/Special Instructions: Activity and diet as tolerated. Avoid the use of street drugs and alcohol. Take all medications as prescribed. When you are in need of refills on your medications please contact your medical provider and/or outpatient psychiatrist to have this done. Please go to scheduled outpatient appointment for aftercare treatment. If symptoms return or become worse, call the crisis line at and/or go to the nearest emergency room for evaluation. Discharge Disposition: HOME SELF-CARE
== END 2020-07-01 12:47 | disposition home or self-care (01) | DRG 885 ==
LOC: 3MHU 21:56
PROVIDERS: ADMIT Psychiatry & Neurology Psychiatry; ATTEND Psychiatry & Neurology Psychiatry
DX: F31.81 Bipolar II disorder (principal); F31.0 Bipolar disorder, current episode hypomanic; E11.9 Type 2 diabetes mellitus without complications; E78.5 Hyperlipidemia, unspecified; F30.8 Other manic episodes; I25.10 Atherosclerotic heart disease of native coronary artery without angina pectoris; Z79.82 Long term (current) use of aspirin; Z79.84 Long term (current) use of oral hypoglycemic drugs; Z79.899 Other long term (current) drug therapy; Z85.828 Personal history of other malignant neoplasm of skin; Z90.710 Acquired absence of both cervix and uterus; Z91.5 Personal history of self-harm; Z20.822 Contact with and (suspected) exposure to COVID-19
CPT/HCPCS: 80061; 83036; 87635

== ENCOUNTER → 2023-02-09 | Outpatient (CLI) | payer BC ==
[2023-02-09 12:50] LABS: Partial Thromboplastin Time 22.4 sec (22.0-30.0); Prothrombin Time 10.2 sec (9.0-12.0)
[2023-02-09 15:30] LABS: Appearance,Urine Clear (Clear); Bilirubin,Urine Negative (Negative); Blood,Urine Negative (Negative); Color,Urine Yellow (Yellow); Ketones,Urine Trace (Negative); Nitrite,Urine Negative (Negative); PH, Urine 7.5; Specific Gravity,Urine 1.019 (1.001-1.030); Urobilinogen,Urine 0.2 E.U./DL
[2023-02-09 15:31] LABS: ALT 21 U/L (8-44); AST 24 U/L (13-35); Albumin 4.5 d/dL (3.8-4.9); Albumin/Globulin Ratio 1.96 Ratio (1.60-3.17); Alkaline Phosphatase 62 U/L (41-126); BUN/Creat Ratio 22.43 Ratio (12.00-20.00); Blood Urea Nitrogen 15.7 mg/dL (9.0-27.0); Calcium 9.9 mg/dL (8.7-10.3); Carbon Dioxide 26.2 mmol/L (21.6-31.8); Chloride 103 mmol/L (96-109); Globulin 2.3 d/dL (1.6-3.3); Glucose 91 mg/dL (70-110); Potassium 4.8 mmol/L (3.5-5.5); Sodium 139 mmol/L (135-145); Total Bilirubin 0.3 mg/dL (0.3-1.2); Total Protein 6.8 d/dL (6.2-8.2)
[2023-02-09 15:36] LABS: Bacteria,Urine None Seen (None Seen)
== END | disposition home or self-care (01) ==
LOC: LABPAT 11:55
PROVIDERS: ATTEND Orthopaedic Surgery
DX: Z01.812 Encounter for preprocedural laboratory examination (principal); M16.12 Unilateral primary osteoarthritis, left hip
CPT/HCPCS: 36415; 80053; 81001; 85610; 85730; 87070

== ENCOUNTER 2023-02-21 07:19 | Observation (INO) | payer BC ==
[~2023-02-21 07:19] MED LIST: ACETAMINOPHEN TAB 500 MG TAB PO PRN; DEXAMETHASONE SOD PHOSPHATE 4 MG/ML 1 ML VIAL IV ONE; GABAPENTIN 300 MG CAP PO PRN; HYDROmorphone 0.5 MG/0.5 ML SYRINGE IVP PRN; LIDOCAINE 1% (10MG/ML) FOR IV START INTRADERMA PRN; MELOXICAM 7.5 MG TAB PO PRN; MIDAZOLAM 2 MG/2 ML VIAL IV PRN; ONDANSETRON 4 MG/2 ML VIAL IVP ONE; TRANEXAMIC 1,000 MG/100ML-NACL 1,000 MG in SALINE 1 100ML.BAG IVPB PRN
[2023-02-21 08:16] LABS: Glucose,Whole Blood 99 mg/dL (70-110)
[2023-02-21 08:25] LABS: Basophils % (A) 0 %; Eosinophils # (A) 0.2 k/uL (0-0.7); Eosinophils % (A) 3 %; HCT 41.2 % (34.0-46.0); HGB 13.5 gm/dL (11.4-16.0); Lymphocytes # (A) 2.4 k/uL (1.0-4.8); Lymphocytes % (A) 38 %; MCH 30.5 pg (25.0-35.0); MCHC 32.7 g/dL (31.0-37.0); MCV 93.3 fL (80.0-100.0); Mean Platelet Volume 7.7; Monocytes # (A) 0.3 k/uL (0-1.0); Monocytes % (A) 4 %; Neutrophils # (A) 3.3 k/uL (1.3-7.7); Neutrophils % (A) 54 %; Platelet Count 250 k/uL (150-450); RBC 4.42 m/uL (3.80-5.40); RDW 12.9 % (11.5-15.5); WBC 6.2 k/uL (3.8-10.6)
[2023-02-21] MEDS ORDERED: MIDAZOLAM 2 MG/2 ML VIAL IVP ONE (08:34)
[2023-02-21] MEDS: LACTATED RINGERS 1,000 ML IV SCH (08:45)
[2023-02-21] MEDS ORDERED: DEXAMETHASONE SOD PHOSPHATE 4 MG/ML 1 ML VIAL ONE (09:30)
[2023-02-21] MEDS ORDERED: PHENYLEPHRINE-0.9% NACL SYG 1,000 MCG/10 ML SYRINGE ONE (09:30)
[2023-02-21] MEDS ORDERED: TRANEXAMIC 1,000 MG/100ML-NACL PREMIX BAG ONE (09:30)
[2023-02-21] MEDS ORDERED: fentaNYL (PF) 50 MCG/ML 2 ML AMP ONE (09:30)
[2023-02-21] MEDS ORDERED: ROPIVACAINE 5 MG/ML 30 ML VIAL ONE (09:30)
[2023-02-21] MEDS ORDERED: PROPOFOL 10 MG/ML 20 ML VIAL IV ONE (09:30)
[2023-02-21] MEDS ORDERED: MIDAZOLAM 2 MG/2 ML VIAL ONE (09:30)
[2023-02-21] MEDS ORDERED: SODIUM CHLORIDE 0.9% (PF) 10 ML VIAL ONE (09:30)
[2023-02-21] MEDS ORDERED: ceFAZolin 1,000 MG in SODIUM CHLORIDE 0.9% 1,000 ML IRRIGATION ONE (09:35)
[2023-02-21] MEDS ORDERED: ROPIVACAINE 5 MG/ML 30 ML VIAL MISCELLANE ONE (10:45)
--- NOTE | 2023-02-21 10:48 | P.OP ---
Date of Procedure: 02/21/23 Preoperative Diagnosis: Severe osteoarthritis left hip Postoperative Diagnosis: Severe osteoarthritis left hip Procedure(s) Performed: Left total hip arthroplasty with direct anterior approach Implants: [employer]hew Polarstem standard size 2 [employer]hew R3, 3 hole hemispherical acetabular shell, 52 mm [employer]hew Reflection 6.5 mm cancellus screw, 20 mm 2 [employer]hew R3, XLPE 20 acetabular liner [employer] Nephew Oxinium femoral head 36 m, +0 All components were press-fit. The articulation is Oxinium on polyethylene. Anesthesia: spinal Surgeon: Surya Charlton Construction Engineering Manager #1: Krista Dugan Estimated Blood Loss (ml): 200 Pathology: none sent Condition: stable Disposition: PACU Indications for Procedure: After failure of conservative treatment we discussed the surgical and nonsurgical treatment options at length. Patient wishes to proceed with a total hip arthroplasty with a direct anterior approach. Complications specific to this procedure were discussed at length, including but not limited to infection, leg length discrepancy, dislocation, nerve injury, and fracture. Covid-19 was also discussed at length with the patient, and they are aware of the current policies and procedures. The patient was given the option of delaying surgery, but they elect to proceed knowing these risks. Patient is aware of all these complications and informed consent was obtained Operative Findings: The operative findings are consistent with severe osteoarthritis the left hip Description of Procedure: The patient was seen and evaluated in the preoperative area and the consent was reviewed. The operative site was marked with a skin marker. The patient verified the procedure and operative site. A EMEKA block was placed by anesthesia in the preoperative area. The patient was then brought to the operating room and given preoperative antibiotics intravenously. 1 g of Tranexamic acid was also given intravenously. A spinal anesthetic was administered by the anesthesia department. The patient was then placed on the Satsuma table with the bony prominences well-padded. The hip area was then prepped with a ChloraPrep solution and draped in the usual sterile fashion. A universal timeout was then performed, which confirmed the patient's name, surgical site, ALLERGIES, and procedure being performed on the consent. Next the incision site was located at 1 cm distal and 4 cm lateral to the anterior superior iliac spine. The skin and subcutaneous tissues were sharply incised. Incision was carefully dissected down to the fascia overlying the tensor fascia nj muscle. This fascia was then incised in line with the muscle fibers. Care was taken to stay laterally in order to avoid injuring the lateral femoral cutaneous nerve. Next, using blunt finger dissection, the tensor fascia nj muscle was dissected off its investing fascia. The muscle was then carefully retracted laterally with a cobra retractor over the lateral neck of the femur. Next, the circumflex vessels were identified and cauterized using the Aquamantis device. The anterior hip capsule was then exposed. The capsule was then opened and an inverted T fashion. The retractors were then placed intracapsularly. The retractors were maintained intracapsular throughout the procedure. The proximal femur was then visualized. Fluoroscopic x-rays were then taken in order to evaluate the preoperative leg lengths. A small amount of traction was placed on the leg. The femoral neck was then osteotomized at the appropriate level above the lesser trochanter. A small wedge of bone was then removed from the remaining femoral head. Next, using a corkscrew the femoral head was removed from the acetabulum. On gross visual inspection, the femoral head had complete loss of articular cartilage and multiple periarticular osteophytes. The femoral head was then measured. Attention was then turned to the acetabulum. The acetabulum was exposed and any remaining labrum was excised. Sequential reaming of the acetabulum was performed using fluoroscopic guidance until there was a good bed of bleeding cancellus bone. When the appropriate size was reached, a trial was then placed. The position and fit of the trial was checked with fluoroscopy. The trial was then removed. Then, using fluoroscopic guidance, the final implant was impacted at 20 of anteversion and 40 of abduction, and fully seated in the acetabulum. 2 screws were then placed in the acetabulum. Again fluoroscopy was used to check position of the screws. Next, the liner was then impacted, with a 20 elevated liner located in the anterior superior quadrant. Component locking was confirmed. Attention was then directed to the femur. With the aid of the Satsuma table, the femur was externally rotated to approximately 130, extended, and adducted under the opposite leg. A side hook was then placed under the proximal femur, and the side hook elevator was used to elevate the proximal femur while releasing the capsule. Retractors were then placed. A capsular release was performed, as well as a release of the conjoined tendon, which afforded excellent visualization of the proximal femur. Next, a box osteotome was used to lateralize the proximal femur. A hand buffing wheel former was then used to locate the femoral canal. Sequential broaching was then performed with appropriate size w hich afforded excellent fixation in the proximal femur. A trial was then placed with appropriate head and neck, and the hip was gently reduced with the aid of the Satsuma table. Fluoroscopy was then used to check position of the components, as well as to evaluate the leg lengths and offset. The leg lengths and offset were measured as closely as possible to ensure stability of the hip. The hip was then gently dislocated and the trials were then removed. Final implants were then impacted and the hip was again reduced. Final fluoroscopic x-rays confirmed that the components were in anatomic position. The leg lengths and offset were measured and were found to coincide with the trial measurements. The hip was also taken through range of motion, and found to be stable. The hip was then copiously irrigated with antibiotic solution with pulsatile lavage. The hip was then irrigated with Irrisept solution. The soft tissues were then injected with a ropivacaine solution. A second dose of 1 g of Tranexamic acid was also given intravenously. The fascia was then closed with 2-0 strata fix suture. The subcutaneous tissue was closed with 3-0 Vicryl. The subcuticular tissue was closed with 3-0 strata fix suture. The skin was then closed with Exofin skin glue. After the glue and dried, and Optifoam silver impregnated dressing was applied. The patient was then transferred to the recovery room in stable condition. The healthcare administrative assistant TRICIA Jones was required due to the complexity of surgery, and the need for skilled surgical dressing maker for positioning, draping, exposure, retraction, and closure of the wound.
--- NOTE | 2023-02-21 11:04 | XR ---
Fluoroscopy History: LT anterior hip Left anterior total hip. 26 sec fl. 1.4803 DAP
[2023-02-21] MEDS ORDERED: NALOXONE 0.4 MG/ML 1 ML VIAL IV PRN (11:12)
[2023-02-21] MEDS ORDERED: HYDROmorphone 0.5 MG/0.5 ML SYRINGE IVP PRN ×2 (11:12)
[2023-02-21] MEDS ORDERED: MAGNESIUM HYDROXIDE 2,400 MG/30 ML CUP PO PRN (11:12)
[2023-02-21] MEDS ORDERED: ONDANSETRON 4 MG/2 ML VIAL IVP PRN (11:12)
[2023-02-21] MEDS ORDERED: HYDROcodone/APAP 7.5-325MG 1 EACH TAB PO PRN (11:14)
[2023-02-21] MEDS ORDERED: HYDROmorphone 0.5 MG/0.5 ML SYRINGE IVP ONE (11:29)
--- NOTE | 2023-02-21 12:15 | XR ---
EXAMINATION TYPE: XR Hip Limited LT DATE OF EXAM: 02/21/2023 CLINICAL HISTORY: Postoperative evaluation TECHNIQUE: Single portable view of the left hip was submitted. FINDINGS: Noted are changes of total hip arthroplasty with femoral and acetabular components appearin g well seated. Alignment is anatomic. Postsurgical soft tissue changes are evident. IMPRESSION: Satisfactory postoperative alignment
[2023-02-21] MEDS ORDERED: HYDROcodone/APAP 7.5-325MG 1 EACH TAB PO ONE (12:47)
--- NOTE | 2023-02-21 13:49 | P.ANPRN ---
Procedure Note - Anesthesia - Nerve Block Performed Left Ziggy Single Date of Procedure: 02/21/23 Procedure Start Time: 08:33 Procedure Stop Time: 08:41 Indication: Acute Post-Operative Pain, Requested by Surgeon Sedation Type: Sedate with meaningful contact maintained Preparation: Sterile Prep Position: Supine Catheter: None Needle Types: Facet Needle Gauge: 21 Ultrasound used to visualize needle placement: Yes Ultrasound used to observe medication spread: Yes Injectate: 0.5% Ropivacaine (see comment for volume) Blood Aspirated: No Pain Paresthesia on Injection Noted: No Resistance on Injection: Normal Image Stored and Saved: Yes Events: Uneventful and Well Tolerated (15 mls+ 10 mls NS+ Decadron 4 mgs)
[2023-02-21] MEDS: HYDROmorphone 1 MG/ML 1 ML SYRINGE IVP PRN ×4 (14:37→23:34)
[2023-02-21] MEDS ORDERED: LACTATED RINGERS 1,000 ML IV ONE (14:44)
[2023-02-21 16:22] LABS: Glucose,Whole Blood 168 mg/dL (70-110)
[2023-02-21] MEDS: SODIUM CHLORIDE 0.9% 1,000 ML IV SCH (17:29)
[2023-02-21] MEDS: HYDROcodone/APAP 7.5-325MG 1 EACH TAB PO PRN (18:32)
[2023-02-21] MEDS: SENNOSIDES-DOCUSATE SODIUM 1 EACH TAB PO SCH (20:19)
[2023-02-21] MEDS: ASPIRIN 81 MG PO SCH (20:19)
[2023-02-21 20:54] LABS: Glucose,Whole Blood 131 mg/dL (70-110)
[2023-02-21] MEDS: LORazepam 1 MG TAB PO PRN (22:25)
[2023-02-22] MEDS: HYDROcodone/APAP 7.5-325MG 1 EACH TAB PO PRN ×3 (00:27→18:00)
[2023-02-22] MEDS: HYDROmorphone 1 MG/ML 1 ML SYRINGE IVP PRN ×3 (02:31→19:23)
[2023-02-22] MEDS: LACTATED RINGERS 1,000 ML IV SCH (02:34)
[2023-02-22] MEDS: SODIUM CHLORIDE 0.9% 1,000 ML IV SCH ×2 (02:34→11:51)
[2023-02-22 06:22] LABS: Glucose,Whole Blood 130 mg/dL (70-110)
[2023-02-22] MEDS: ASPIRIN 81 MG PO SCH ×2 (08:33→20:32)
[2023-02-22] MEDS: CLOPIDOGREL 75 MG TAB PO SCH (08:33)
[2023-02-22] MEDS: LORazepam 1 MG TAB PO PRN ×2 (08:37→20:32)
[2023-02-22] MEDS ORDERED: KETOROLAC 15 MG/ML 1 ML VIAL IVP PRN (08:57)
[2023-02-22] MEDS: METOPROLOL TARTRATE 25 MG TAB PO SCH ×2 (09:57→20:32)
[2023-02-22] MEDS: metFORMIN 500 MG TAB PO SCH ×2 (09:57→17:06)
[2023-02-22] MEDS: ISOSORBIDE MONONITRATE ER 30 MG TAB.ER.24H PO SCH (09:57)
[2023-02-22] MEDS: KETOROLAC 15 MG/ML 1 ML VIAL IVP SCH ×2 (09:57→20:32)
--- NOTE | 2023-02-22 10:57 | P.PN ---
Subjective Progress Note Date: 02/22/23 This is a 57-year-old female who is status post left total hip arthroplasty. This is postoperative day #1 and patient is seen and evaluated at bedside with Dr. Surya Charlton. Patient states that she is quite sore in the left hip, but was able to work physical therapy today. Patient denies any fever/chills, numbness, weakness, tingling, abdominal pain, shortness of breath or chest pain. Objective - Vital Signs Vital signs: Vital Signs Temp 98.3 F 02/22/23 08:00 Pulse 73 02/22/23 08:00 Resp 23 02/22/23 08:00 BP 115/69 02/22/23 08:00 Pulse Ox 97 02/22/23 08:00 FiO2 Intake & Output 02/21/23 02/22/23 02/22/23 18:59 06:59 18:59 Intake Total 1551 Output Total 1000 Balance 551 Weight 92.2 kg Intake: IV 1551 Output: Urine 800 Estimated Blood Loss 200 Other: Voiding Method Toilet # Voids 4 - Exam Vital signs are stable. Patient is in no acute distress and is alert and oriented 3. Calf is soft and nontender to palpation. Dressing is clean, dry, and intact. Patient has full foot and ankle motion without pain or difficulty. Sensation intact. Neurovascular status and circulatory status are intact. - Labs CBC & Chem 7: 02/21/23 08:14 Labs: Abnormal Lab Results - Last 24 Hours (Table) 02/21/23 02/21/23 02/22/23 Range/Units 16:20 20:52 06:20 POC Glucose (mg/dL) 168 H 131 H 130 H (70-110) mg/dL Assessment and Plan (1) Osteoarthritis of left hip Current Visit: Yes Status: Acute Code(s): M16.12 - UNILATERAL PRIMARY OSTEOARTHRITIS, LEFT HIP SNOMED Code(s): 899564772320902 (2) S/P total hip arthroplasty Current Visit: Yes Status: Acute Code(s): Z96.649 - PRESENCE OF UNSPECIFIED ARTIFICIAL HIP JOINT SNOMED Code(s): 630467369263 Plan: Continue routine postop care and pain control. Patient has resumed Plavix daily and is also taking aspirin twice daily for DVT prophylaxis. Weightbearing as tolerated with a walker. Leave dressing in place for 7 days. Appreciate input from medicine. Anticipate discharge home with homecare tomorrow.
[2023-02-22 11:06] LABS: Glucose,Whole Blood 127 mg/dL (70-110)
[2023-02-22] MEDS ORDERED: PANTOPRAZOLE 40 MG TABLET PO PRN (11:42)
[2023-02-22] MEDS: LACTOBACILLUS ACIDOPHILUS/PECT 1 EACH CAPSULE PO SCH (11:48)
[2023-02-22 12:13] LABS: Basophils # (A) 0.02 X 10*3/uL (0.00-0.10); Basophils % (A) 0.2 %; Eosinophils # (A) 0.01 X 10*3/uL (0.04-0.35); Eosinophils % (A) 0.1 %; HCT 34.9 % (37.2-46.3); HGB 11.8 d/dL (12.0-15.0); Lymphocytes # (A) 1.77 X 10*3/uL (0.90-5.00); Lymphocytes % (A) 16.4 %; MCH 31.3 pg (27.0-32.0); MCHC 33.8 d/dL (32.0-37.0); MCV 92.6 FL (80.0-97.0); Mean Platelet Volume 11.4 FL (9.5-12.2); Monocytes # (A) 0.71 X 10*3/uL (0.20-1.00); Monocytes % (A) 6.6 %; NRBC Per 100 WBC 0 X 10*3/uL (0.00-0.01); Neutrophils # (A) 8.23 X 10*3/uL (1.80-7.70); Neutrophils % (A) 76.2 %; Platelet Count 175 X 10*3/uL (140-440); RBC 3.77 X 10*6/uL (4.10-5.20); RBC Morphology Normal (Normal); RDW 12.7 % (11.5-14.5); WBC 10.79 X 10*3/uL (4.50-10.00)
--- NOTE | 2023-02-22 16:03 | P.CONS ---
History of Present Illness - Reason for Consult Consult date: 02/22/23 Medical management Requesting physician: Surya Charlton - Chief Complaint Left hip surgery - History of Present Illness Pleasant 57-year-old patient, follows with Dr. Mariposa Willingham. Chronic stable medical conditions include CAD with stent, COPD, diabetes, GERD, hypertension. Patient is currently stent was a was 5 years ago. Patient is undergoing left total hip arthroplasty. Painful at the operative site. No nausea vomiting. No chest pain no shortness of breath. Sitting up in a chair. Review of systems: GEN.: None EYES: None HEENT: None NECK: None RESPIRATORY: None CARDIOVASCULAR: None GASTROINTESTINAL: None GENITOURINARY: None MUSCULOSKELETAL: Joint pains LYMPHATICS: None HEMATOLOGICAL: None PSYCHIATRY: None NEUROLOGICAL: None Past medical history to include: CAD with stent, COPD, diabetes, GERD, hypertension, hyperlipidemia GERD, osteoarthritis. Bipolar. ADHD. Social history: . Patient smoked for 37 years stopped in 2016. Alcohol rarely. Physical examination: VITAL SIGNS: 96.7, 56, 16, 114/66, 97% room air GENERAL: BMI 29.2, sitting up in a chair reclining awake. EYES: Pupils equal. Conjunctiva normal. HEENT: External appearance of nose and ears normal, oral cavity grossly normal. NECK: JVD not raised; masses not palpable. HEART: First and second heart sounds are normal; no edema. LUNGS: Respiratory rate normal; decreased breath sound. ABDOMEN: Soft, nontender, liver spleen not palpable, no masses palpable. PSYCH: Alert and oriented x3; mood and affect normal. MUSCULOSKELETAL:No Clubbing/cyanosis;muscles-grossly intact. UA. Dressing over left hip incision site NEUROLOGICAL: Cranial nerves grossly intact; no facial asymmetry, power and sensation grossly intact. LYMPHATICS: No lymph nodes palpable in the axilla and neck INVESTIGATIONS, reviewed in the clinical context: February 22: White count 10.7 hemoglobin 11.8 platelets 175 February 21: White count 6.2 hemoglobin 13.5 platelets 250 February 09: Potassium 4.8 creatinine 0.7 Assessment plan: --Left total hip arthroplasty Pain control. Aspirin twice a day for DVT prophylaxis per surgery -CAD with a prior history of stent. Approximately 5 years ago. Aspirin. Lipitor. Plavix. Lopressor -Primary osteoarthritis Pain control when necessary -Bipolar disorder Prozac 80 mg daily at bedtime Ativan when necessary -GERD Prevacid -Essential hypertension Metoprolol 25 mg twice a day -Hyperlipidemia Crestor 40 mg a day -Diabetes mellitus type 2 on oral hypoglycemic Glucophage. Follow Accu-Cheks with sliding skill insulin. Home medications resumed. Discussed with patient. Follow Accu-Cheks. Thank you Dr. Charlton Past Medical History Past Medical History: Coronary Artery Disease (CAD), Cancer, COPD, Diabetes Mellitus, GERD/Reflux, Hyperlipidemia, Osteoarthritis (OA) Additional Past Medical History / Comment(s): NIDDM type II, skin cancer with removal History of Any Multi-Drug Resistant Organisms: None Reported Past Surgical History: Section, Heart Catheterization, Heart Catheterization With Stent, Hysterectomy, Joint Replacement, Orthopedic Surgery Additional Past Surgical History / Comment(s): ORIF RT ANKLE X 2 for crushed ankle/hardware since removed, total right hip 2017 Past Anesthesia/Blood Transfusion Reactions: No Reported Reaction Date of Last Stent Placement:: 2017 Past Psychological History: ADD/ADHD, Bipolar Smoking Status: Former smoker Past Alcohol Use History: Rare Additional Past Alcohol Use History / Comment(s): Pt started smoking in 1978 and quit in 2015 Past Drug Use History: Marijuana Additional Drug Use History / Comment(s): Past smoked marijuana and then once a few days ago/one hit. - Past Family History Mother Family Medical History: Cancer Additional Family Medical History / Comment(s): Kidney cancer with mets. Medications and Allergies Home Medications Medication Instructions Recorded Confirmed Type Ascorbic Acid [Vitamin C] 1,000 mg PO DAILY 02/18/23 02/21/23 History Aspirin 81 mg PO QAM 02/18/23 02/21/23 History Cholecalciferol (Vitamin D3) 50 mcg PO QAM 02/18/23 02/21/23 History [Vitamin D3 (50 Mcg = 2000 Iu) Chew Tab] Clopidogrel [Plavix] 75 mg PO QAM 02/18/23 02/21/23 History Collagen Powder 2 tsp PO DAILY 02/18/23 02/21/23 History Cyanocobalamin (Vitamin B-12) 2,500 mcg PO DAILY 02/18/23 02/21/23 History [Vitamin B-12] FLUoxetine HCL [PROzac] 80 mg PO HS 02/18/23 02/21/23 History HYDROcodone/APAP 7.5-325MG [Belva 1 tab PO Q4-6H PRN 02/18/23 02/21/23 History 7.5-325] Isosorbide Mononitrate ER [Imdur] 30 mg PO QAM 02/18/23 02/21/23 History L.acidoph,Paracasei, B.lactis 1 cap PO DAILY 02/18/23 02/21/23 History [Probiotic] LORazepam [Ativan] 1 tab PO QID PRN 02/18/23 02/21/23 History Lansoprazole [Prevacid] 30 mg PO QAM PRN 02/18/23 02/21/23 History Magnesium Oxide [Magnesium] 500 mg PO QAM 02/18/23 02/21/23 History Meloxicam [Mobic] 15 mg PO DAILY PRN 02/18/23 02/21/23 History Metoprolol Tartrate 25 mg PO BID 02/18/23 02/21/23 History Multivitamins, Thera [Multivitamin 1 tab PO DAILY 02/18/23 02/21/23 History (formulary)] Proplant Complete Shake 1 dose PO DAILY 02/18/23 02/21/23 History Rosuvastatin Calcium [Crestor] 40 mg PO QAM 02/18/23 02/21/23 History Vitamin E (Dl,Tocopheryl Acet) 1 cap PO DAILY 02/18/23 02/21/23 History [Vitamin E (400 Iu = 180 mg)] Zinc Gluconate [Zinc] 50 mg PO QAM 02/18/23 02/21/23 History metFORMIN HCL [Glucophage] 500 mg PO BID 02/18/23 02/21/23 History Aspirin [Adult Low Dose Aspirin EC] 81 mg PO BID 30 Days #60 tab 02/21/23 Rx HYDROcodone/APAP 7.5-325MG [Belva 1 - 2 tab PO Q6H PRN #32 tab 02/21/23 Rx 7.5-325] Sennosides [Senokot] 2 tab PO DAILY PRN #60 tablet 02/21/23 Rx Allergies Allergy/AdvReac Type Severity Reaction Status Date / Time No Known Allergies Allergy Verified 02/21/23 08:07 Physical Exam Vitals: Vital Signs Temp Pulse Resp BP Pulse Ox 02/22/23 14:00 96.7 F L 56 L 16 114/66 97 02/22/23 08:00 98.3 F 73 23 115/69 97 02/22/23 02:00 97.8 F 57 L 114/71 96 02/21/23 20:00 98.2 F 63 18 112/68 96 02/21/23 17:01 97.7 F 64 17 122/69 98 Intake and Output 02/22/23 02/22/23 02/22/23 06:59 14:59 22:59 Other: # Voids 4 Results CBC & Chem 7: 02/22/23 07:02 Labs: Abnormal Lab Results - Last 24 Hours (Table) 02/21/23 02/21/23 02/22/23 Range/Units 16:20 20:52 06:20 WBC (4.50-10.00) X 10*3/uL RBC (4.10-5.20) X 10*6/uL Hgb (12.0-15.0) d/dL Hct (37.2-46.3) % Neutrophils # (1.80-7.70) X 10*3/uL Eosinophils # (0.04-0.35) X 10*3/uL POC Glucose (mg/dL) 168 H 131 H 130 H (70-110) mg/dL 02/22/23 02/22/23 Range/Units 07:02 11:04 WBC 10.79 H (4.50-10.00) X 10*3/uL RBC 3.77 L (4.10-5.20) X 10*6/uL Hgb 11.8 L (12.0-15.0) d/dL Hct 34.9 L (37.2-46.3) % Neutrophils # 8.23 H (1.80-7.70) X 10*3/uL Eosinophils # 0.01 L (0.04-0.35) X 10*3/uL POC Glucose (mg/dL) 127 H (70-110) mg/dL
[2023-02-22 16:25] LABS: Glucose,Whole Blood 112 mg/dL (70-110)
[2023-02-22] MEDS: FLUoxetine HCL 20 MG CAP PO SCH (20:32)
[2023-02-22] MEDS: SENNOSIDES-DOCUSATE SODIUM 1 EACH TAB PO SCH (20:32)
[2023-02-22 20:57] LABS: Glucose,Whole Blood 115 mg/dL (70-110)
[2023-02-22] MEDS ORDERED: ZOLPIDEM 5 MG TAB PO PRN (23:21)
[2023-02-23] MEDS: HYDROcodone/APAP 7.5-325MG 1 EACH TAB PO PRN ×4 (02:39→19:50)
[2023-02-23] MEDS: SODIUM CHLORIDE 0.9% 1,000 ML IV SCH ×2 (03:20→19:42)
[2023-02-23] MEDS: LACTATED RINGERS 1,000 ML IV SCH (03:21)
[2023-02-23 06:24] LABS: Glucose,Whole Blood 85 mg/dL (70-110)
[2023-02-23] MEDS: MAGNESIUM OXIDE 400 MG TAB PO SCH (08:04)
[2023-02-23] MEDS: CYANOCOBALAMIN 500 MCG TAB PO SCH (08:04)
[2023-02-23] MEDS: ZINC SULFATE 220 MG CAP PO SCH (08:04)
[2023-02-23] MEDS: METOPROLOL TARTRATE 25 MG TAB PO SCH ×2 (08:04→21:05)
[2023-02-23] MEDS: ASPIRIN 81 MG PO SCH (08:04)
[2023-02-23] MEDS: LACTOBACILLUS ACIDOPHILUS/PECT 1 EACH CAPSULE PO SCH (08:04)
[2023-02-23] MEDS: ATORVASTATIN 80 MG TAB PO SCH (08:04)
[2023-02-23] MEDS: CHOLECALCIFEROL 25 MCG (1000 IU) TABLET PO SCH (08:04)
[2023-02-23] MEDS: MULTIVITAMINS, THERA 1 EACH TAB PO SCH (08:05)
[2023-02-23] MEDS: CLOPIDOGREL 75 MG TAB PO SCH (08:05)
[2023-02-23] MEDS: ISOSORBIDE MONONITRATE ER 30 MG TAB.ER.24H PO SCH (08:05)
[2023-02-23] MEDS: VITAMIN E (DL,TOCOPHERYL ACET) 400 UNIT (180 MG) CAP PO SCH (08:05)
[2023-02-23] MEDS: KETOROLAC 15 MG/ML 1 ML VIAL IVP SCH ×2 (08:05→21:05)
[2023-02-23] MEDS: metFORMIN 500 MG TAB PO SCH ×2 (08:05→17:11)
[2023-02-23] MEDS: ASCORBIC ACID 500 MG TAB PO SCH (08:24)
[2023-02-23] MEDS: diazePAM 5 MG TAB PO PRN ×3 (09:31→21:04)
--- NOTE | 2023-02-23 09:31 | P.PN ---
Subjective Progress Note Date: 02/23/23 This is a 57-year-old female who is status post left total hip arthroplasty. This is postoperative day #2 and patient is seen and evaluated at bedside with Dr. Surya Charlton. Patient states that she has been able to work with physical therapy, but still has quite a bit of pain in the right hip. Patient denies any new complaints today. Objective - Vital Signs Vital signs: Vital Signs Temp 99.2 F 02/23/23 07:29 Pulse 67 02/23/23 07:29 Resp 19 02/23/23 07:29 BP 129/79 02/23/23 07:29 Pulse Ox 99 02/23/23 07:29 FiO2 Intake & Output 02/22/23 02/23/23 02/23/23 18:59 06:59 18:59 Other: Voiding Method Toilet # Voids 6 2 - Exam Vital signs are stable. Patient is in no acute distress and is alert and oriented 3. Calf is soft and nontender to palpation. Dressing is clean, dry, and intact. Patient has full foot and ankle motion without pain or difficulty. Sensation intact. Neurovascular status and circulatory status are intact. - Labs CBC & Chem 7: 02/22/23 07:02 Labs: Abnormal Lab Results - Last 24 Hours (Table) 02/22/23 02/22/23 02/22/23 Range/Units 07:02 11:04 16:22 WBC 10.79 H (4.50-10.00) X 10*3/uL RBC 3.77 L (4.10-5.20) X 10*6/uL Hgb 11.8 L (12.0-15.0) d/dL Hct 34.9 L (37.2-46.3) % Neutrophils # 8.23 H (1.80-7.70) X 10*3/uL Eosinophils # 0.01 L (0.04-0.35) X 10*3/uL POC Glucose (mg/dL) 127 H 112 H (70-110) mg/dL 02/22/23 Range/Units 20:54 WBC (4.50-10.00) X 10*3/uL RBC (4.10-5.20) X 10*6/uL Hgb (12.0-15.0) d/dL Hct (37.2-46.3) % Neutrophils # (1.80-7.70) X 10*3/uL Eosinophils # (0.04-0.35) X 10*3/uL POC Glucose (mg/dL) 115 H (70-110) mg/dL Assessment and Plan (1) Osteoarthritis of left hip Current Visit: Yes Status: Acute Code(s): M16.12 - UNILATERAL PRIMARY OSTEOARTHRITIS, LEFT HIP SNOMED Code(s): 523738264746447 (2) S/P total hip arthroplasty Current Visit: Yes Status: Acute Code(s): Z96.649 - PRESENCE OF UNSPECIFIED ARTIFICIAL HIP JOINT SNOMED Code(s): 715610860084 Plan: Continue routine postop care and pain control. Patient has resumed Plavix daily and is also taking aspirin twice daily for DVT prophylaxis. Weightbearing as tolerated with a walker. Leave dressing in place for 7 days. Appreciate input from medicine. Continue physical therapy. Anticipate discharge home with homecare later today or tomorrow.
[2023-02-23] MEDS: HYDROmorphone 1 MG/ML 1 ML SYRINGE IVP PRN ×2 (10:25→18:35)
[2023-02-23 11:16] LABS: Glucose,Whole Blood 138 mg/dL (70-110)
--- NOTE | 2023-02-23 15:09 | P.PN ---
Progress Note - Text Progress Note Date: 02/23/23 - Chief Complaint Left hip surgery Hospital course: Pleasant 57-year-old patient, follows with Dr. Mariposa Willingham. Chronic stable medical conditions include CAD with stent, COPD, diabetes, GERD, hypertension. Coronary stent about 5 years ago. Underwent left total hip arthroplasty. Painful at the operative site. No nausea vomiting. No chest pain no shortness of breath. Sitting up in a chair. February 23: This morning patient has significant nausea and pain. Has been up to the bathroom. Did eat some. No chest pain and breathing stable. Hinojosa discontinued. Did get up in a chair. Active Medications Hydrocodone Bitart/Acetaminophen (Hydrocodone/Apap 7.5-325mg 1 Each Tab) 1 each PO Q6H PRN PRN Reason: Pain Scale 1 to 5 Stop: 03/23/23 11:15 Hydrocodone Bitart/Acetaminophen (Hydrocodone/Apap 7.5-325mg 1 Each Tab) 2 each PO Q6H PRN PRN Reason: Pain Scale 6 to 10 Stop: 03/23/23 11:15 Last Admin: 02/23/23 13:36 Dose: 2 each Ascorbic Acid (Ascorbic Acid 500 Mg Tab) 1,000 mg PO DAILY [facility] Last Admin: 02/23/23 08:24 Dose: 1,000 mg Aspirin (Aspirin 81 Mg) [address] [facility] Last Admin: 02/23/23 08:04 Dose: 81 mg Atorvastatin Calcium (Atorvastatin 80 Mg Tab) [address] [facility] Last Admin: 02/23/23 08:04 Dose: 80 mg Cholecalciferol (Cholecalciferol 25 Mcg (1000 Iu) Tablet) [facility] Last Admin: 02/23/23 08:04 Dose: 50 mcg Clopidogrel Bisulfate (Clopidogrel 75 Mg Tab) 75 mg PO DAILY [facility] Stop: 03/24/23 09:01 Last Admin: 02/23/23 08:05 Dose: 75 mg Cyanocobalamin (Cyanocobalamin 500 Mcg Tab) 2,500 mcg PO DAILY [facility] Last Admin: 02/23/23 08:04 Dose: 2,500 mcg Diazepam (Diazepam 5 Mg Tab) 5 mg PO TID PRN PRN Reason: Pain Last Admin: 02/23/23 09:31 Dose: 5 mg Fluoxetine HCl (Fluoxetine Hcl 20 Mg Cap) 80 mg PO [facility] Last Admin: 02/22/23 20:32 Dose: 80 mg Hydromorphone HCl (Hydromorphone 0.5 Mg/0.5 Ml Syringe) 0.5 mg IVP Q3HR PRN PRN Reason: Pain Scale 4 to 6 Stop: 03/23/23 11:13 Hydromorphone HCl (Hydromorphone 1 Mg/Ml 1 Ml Syringe) 1 mg IVP Q3HR PRN PRN Reason: Pain Scale 7 to 10 Stop: 03/23/23 11:13 Last Admin: 02/23/23 10:25 Dose: 1 mg Hydromorphone HCl (Hydromorphone 0.5 Mg/0.5 Ml Syringe) 0.25 mg IVP Q3HR PRN PRN Reason: Pain Scale 1 to 3 Stop: 03/23/23 11:13 Lactated Ringer's (Lactated Ringers) 1,000 mls @ 20 mls/hr IV .Q24H [facility] Last Admin: 02/23/23 03:21 Dose: Not Given Sodium Chloride (Saline 0.9%) 1,000 mls @ 70 mls/hr IV .[id number] [facility] Stop: 03/23/23 11:16 Last Admin: 02/23/23 03:20 Dose: Not Given Isosorbide Mononitrate (Isosorbide Mononitrate Er 30 Mg Tab.Er.24h) 30 mg PO QAM [facility] Last Admin: 02/23/23 08:05 Dose: 30 mg Ketorolac Tromethamine (Ketorolac 15 Mg/Ml 1 Ml Vial) 15 mg IVP BID [facility] Stop: 02/27/23 09:01 Last Admin: 02/23/23 08:05 Dose: 15 mg Lactobacillus Acidophilus (Lactobacillus Acidophilus/Pect 1 Each Capsule) 1 each PO DAILY [facility] Last Admin: 02/23/23 08:04 Dose: 1 each Lidocaine HCl (Lidocaine 1% (10mg/Ml) For Iv Start) 0.1 ml INTRADERMA PER PROTOCOL PRN PRN Reason: IV Start Lorazepam (Lorazepam 1 Mg Tab) 1 mg PO QID PRN PRN Reason: Anxiety Last Admin: 02/22/23 20:32 Dose: 1 mg Magnesium Hydroxide (Magnesium Hydroxide 2,400 Mg/30 Ml Cup) 2,400 mg PO DAILY PRN PRN Reason: Constipation Stop: 03/23/23 11:13 Magnesium Oxide (Magnesium Oxide 400 Mg Tab) 400 mg PO QAM [facility] Last Admin: 02/23/23 08:04 Dose: 400 mg Metformin HCl (Metformin 500 Mg Tab) 500 mg PO BID-W/MEALS [facility] Last Admin: 02/23/23 08:05 Dose: 500 mg Metoprolol Tartrate (Metoprolol Tartrate 25 Mg Tab) 25 mg PO BID [facility] Last Admin: 02/23/23 08:04 Dose: 25 mg Multivitamins (Multivitamins, Thera 1 Each Tab) 1 each PO DAILY [facility] Last Admin: 02/23/23 08:05 Dose: 1 each Naloxone HCl (Naloxone 0.4 Mg/Ml 1 Ml Vial) 0.2 mg IV Q2M PRN PRN Reason: Opioid Reversal Stop: 03/23/23 11:13 Ondansetron HCl (Ondansetron 4 Mg/2 Ml Vial) 4 mg IVP Q8H PRN PRN Reason: Nausea And Vomiting Stop: 03/23/23 11:13 Pantoprazole Sodium (Pantoprazole 40 Mg Tablet) 40 mg PO QAM PRN PRN Reason: Heartburn Senna/Docusate Sodium (Sennosides-Docusate Sodium 1 Each Tab) 2 each PO HS [facility] Stop: 03/23/23 21:01 Last Admin: 02/22/23 20:32 Dose: 2 each Vitamin E (Vitamin E (Dl,Tocopheryl Acet) 400 Unit (180 Mg) Cap) 400 unit PO DAILY [facility] Last Admin: 02/23/23 08:05 Dose: 400 unit Zinc Sulfate (Zinc Sulfate 220 Mg Cap) 220 mg PO QAM [facility] Last Admin: 02/23/23 08:04 Dose: 220 mg Zolpidem Tartrate (Zolpidem 5 Mg Tab) 5 mg PO ONCE PRN PRN Reason: Insomnia Last Admin: 02/22/23 23:28 Dose: 5 mg Past medical history to include: CAD with stent, COPD, diabetes, GERD, hypertension, hyperlipidemia GERD, osteoarthritis. Bipolar. ADHD. Social history: . Patient smoked for 37 years stopped in 2016. Alcohol rarely. Physical examination: VITAL SIGNS: 99.2, 67, 19, 129/79, 99% room air GENERAL: Sitting at the edge of the bed EYES: Pupils equal. Conjunctiva normal. HEENT: External appearance of nose and ears normal, oral cavity grossly normal. NECK: JVD not raised; masses not palpable. HEART: First and second heart sounds are normal; no edema. LUNGS: Respiratory rate normal; decreased breath sound. ABDOMEN: Soft, nontender, liver spleen not palpable, no masses palpable. PSYCH: Alert and oriented x3; mood and affect normal. MUSCULOSKELETAL:No Clubbing/cyanosis;muscles-grossly intact. UA. Dressing over left hip incision site INVESTIGATIONS, reviewed in the clinical context: February 22: White count 10.7 hemoglobin 11.8 platelets 175 February 21: White count 6.2 hemoglobin 13.5 platelets 250 February 09: Potassium 4.8 creatinine 0.7 Assessment plan: --Left total hip arthroplasty Pain control. Aspirin twice a day for DVT prophylaxis per surgery -CAD with a prior history of stent. Approximately 5 years ago. Aspirin. Lipitor. Plavix. Lopressor -Primary osteoarthritis Pain control when necessary -Bipolar disorder Prozac 80 mg daily at bedtime Ativan when necessary -GERD Prevacid -Acute postprocedure blood loss anemia expected from surgery Ferrous sulfate -Essential hypertension Metoprolol 25 mg twice a day -Hyperlipidemia Crestor 40 mg a day -Diabetes mellitus type 2 on oral hypoglycemic Glucophage. Follow Accu-Cheks with sliding skill insulin. Discussed with patient. Continue current treatment plan. Thank you Dr. Charlton Past Medical History Past Medical History: Coronary Artery Disease (CAD), Cancer, COPD, Diabetes Mellitus, GERD/Reflux, Hyperlipidemia, Osteoarthritis (OA) Additional Past Medical History / Comment(s): NIDDM type II, skin cancer with removal History of Any Multi-Drug Resistant Organisms: None Reported Past Surgical History: Section, Heart Catheterization, Heart Catheterization With Stent, Hysterectomy, Joint Replacement, Orthopedic Surgery Additional Past Surgical History / Comment(s): ORIF RT ANKLE X 2 for crushed ankle/hardware since removed, total right hip 2018 Past Anesthesia/Blood Transfusion Reactions: No Reported Reaction Date of Last Stent Placement:: 2018 Past Psychological History: ADD/ADHD, Bipolar Smoking Status: Former smoker Past Alcohol Use History: Rare Additional Past Alcohol Use History / Comment(s): Pt started smoking in 1978 and quit in 2015 Past Drug Use History: Marijuana Additional Drug Use History / Comment(s): Past smoked marijuana and then once a few days ago/one hit. - Past Family History Mother Family Medical History: Cancer Additional Family Medical History / Comment(s): Kidney cancer with mets. Medications and Allergies Home Medications Medication Instructions Recorded Confirmed Type Ascorbic Acid [Vitamin C] 1,000 mg PO DAILY 02/18/23 02/21/23 History Aspirin 81 mg PO QAM 02/18/23 02/21/23 History Cholecalciferol (Vitamin D3) 50 mcg PO QAM 02/18/23 02/21/23 History [Vitamin D3 (50 Mcg = 2000 Iu) Chew Tab] Clopidogrel [Plavix] 75 mg PO QAM 02/18/23 02/21/23 History Collagen Powder 2 tsp PO DAILY 02/18/23 02/21/23 History Cyanocobalamin (Vitamin B-12) 2,500 mcg PO DAILY 02/18/23 02/21/23 History [Vitamin B-12] FLUoxetine HCL [PROzac] 80 mg PO HS 02/18/23 02/21/23 History HYDROcodone/APAP 7.5-325MG [Gypsum 1 tab PO Q4-6H PRN 02/18/23 02/21/23 History 7.5-325] Isosorbide Mononitrate ER [Imdur] 30 mg PO QAM 02/18/23 02/21/23 History L.acidoph,Paracasei, B.lactis 1 cap PO DAILY 02/18/23 02/21/23 History [Probiotic] LORazepam [Ativan] 1 tab PO QID PRN 02/18/23 02/21/23 History Lansoprazole [Prevacid] 30 mg PO QAM PRN 02/18/23 02/21/23 History Magnesium Oxide [Magnesium] 500 mg PO QAM 02/18/23 02/21/23 History Meloxicam [Mobic] 15 mg PO DAILY PRN 02/18/23 02/21/23 History Metoprolol Tartrate 25 mg PO BID 02/18/23 02/21/23 History Multivitamins, Thera [Multivitamin 1 tab PO DAILY 02/18/23 02/21/23 History (formulary)] Proplant Complete Shake 1 dose PO DAILY 02/18/23 02/21/23 History Rosuvastatin Calcium [Crestor] 40 mg PO QAM 02/18/23 02/21/23 History Vitamin E (Dl,Tocopheryl Acet) 1 cap PO DAILY 02/18/23 02/21/23 History [Vitamin E (400 Iu = 180 mg)] Zinc Gluconate [Zinc] 50 mg PO QAM 02/18/23 02/21/23 History metFORMIN HCL [Glucophage] 500 mg PO BID 02/18/23 02/21/23 History Aspirin [Adult Low Dose Aspirin EC] 81 mg PO BID 30 Days #60 tab 02/21/23 Rx HYDROcodone/APAP 7.5-325MG [Gy[place]um 1 - 2 tab PO Q6H PRN #32 tab 02/21/23 Rx 7.5-325] Sennosides [Senokot] 2 tab PO DAILY PRN #60 tablet 02/21/23 Rx Allergies Allergy/AdvReac Type Severity Reaction Status Date / Time No Known Allergies Allergy Verified 02/21/23 08:07
[2023-02-23] MEDS: diphenhydrAMINE 25 MG CAP PO PRN ×2 (16:01→21:05)
[2023-02-23 16:36] LABS: Glucose,Whole Blood 101 mg/dL (70-110)
[2023-02-23] MEDS: FERROUS SULFATE 325 MG TAB PO SCH (17:11)
[2023-02-23 20:24] LABS: Glucose,Whole Blood 73 mg/dL (70-110)
[2023-02-23] MEDS: FLUoxetine HCL 20 MG CAP PO SCH (21:04)
[2023-02-23] MEDS: SENNOSIDES-DOCUSATE SODIUM 1 EACH TAB PO SCH (21:21)
[2023-02-24] MEDS: HYDROcodone/APAP 7.5-325MG 1 EACH TAB PO PRN ×3 (01:47→13:44)
[2023-02-24 05:58] LABS: Glucose,Whole Blood 96 mg/dL (70-110)
[2023-02-24] MEDS: LACTATED RINGERS 1,000 ML IV SCH (06:02)
[2023-02-24] MEDS: CHOLECALCIFEROL 25 MCG (1000 IU) TABLET PO SCH (07:50)
[2023-02-24] MEDS: LACTOBACILLUS ACIDOPHILUS/PECT 1 EACH CAPSULE PO SCH (07:50)
[2023-02-24] MEDS: ISOSORBIDE MONONITRATE ER 30 MG TAB.ER.24H PO SCH (07:50)
[2023-02-24] MEDS: MAGNESIUM OXIDE 400 MG TAB PO SCH (07:51)
[2023-02-24] MEDS: MULTIVITAMINS, THERA 1 EACH TAB PO SCH (07:51)
[2023-02-24] MEDS: CYANOCOBALAMIN 500 MCG TAB PO SCH (07:51)
[2023-02-24] MEDS: metFORMIN 500 MG TAB PO SCH (07:51)
[2023-02-24] MEDS: FERROUS SULFATE 325 MG TAB PO SCH (07:51)
[2023-02-24] MEDS: ATORVASTATIN 80 MG TAB PO SCH (07:51)
[2023-02-24] MEDS: CLOPIDOGREL 75 MG TAB PO SCH (07:51)
[2023-02-24] MEDS: ASPIRIN 81 MG PO SCH (07:51)
[2023-02-24] MEDS: METOPROLOL TARTRATE 25 MG TAB PO SCH (07:51)
[2023-02-24] MEDS: ASCORBIC ACID 500 MG TAB PO SCH (07:51)
[2023-02-24] MEDS: VITAMIN E (DL,TOCOPHERYL ACET) 400 UNIT (180 MG) CAP PO SCH (07:52)
[2023-02-24] MEDS: KETOROLAC 15 MG/ML 1 ML VIAL IVP SCH (07:52)
[2023-02-24] MEDS: ZINC SULFATE 220 MG CAP PO SCH (08:06)
[2023-02-24] MEDS: diphenhydrAMINE 25 MG CAP PO PRN (09:11)
[2023-02-24] MEDS: diazePAM 5 MG TAB PO PRN (10:21)
[2023-02-24 10:56] LABS: Basophils # (A) 0.02 X 10*3/uL (0.00-0.10); Basophils % (A) 0.3 %; Eosinophils # (A) 0.13 X 10*3/uL (0.04-0.35); HCT 33.2 % (37.2-46.3); Lymphocytes # (A) 2.46 X 10*3/uL (0.90-5.00); Lymphocytes % (A) 37.2 %; MCH 30.7 pg (27.0-32.0); MCHC 33.1 d/dL (32.0-37.0); MCV 92.7 FL (80.0-97.0); Mean Platelet Volume 10.3 FL (9.5-12.2); Monocytes # (A) 0.56 X 10*3/uL (0.20-1.00); Monocytes % (A) 8.5 %; NRBC Per 100 WBC 0 X 10*3/uL (0.00-0.01); Neutrophils # (A) 3.44 X 10*3/uL (1.80-7.70); Neutrophils % (A) 51.8 %; Platelet Count 200 X 10*3/uL (140-440); RBC 3.58 X 10*6/uL (4.10-5.20); RDW 12.8 % (11.5-14.5); WBC 6.62 X 10*3/uL (4.50-10.00)
[2023-02-24 12:02] LABS: Glucose,Whole Blood 94 mg/dL (70-110)
--- NOTE | 2023-02-24 13:31 | P.DS ---
Providers Date of admission: 02/22/23 09:22 Expected date of discharge: 02/24/23 Attending physician: Surya Charlton Consults: 02/22/23 08:58 Consult Physician Routine Consulting Provider: Mariposa Willingham Consult Reason/Comments: medical management Do you want consulting provider notified?: Yes Primary care physician: Mariposa Lisa Tarsha - Discharge Diagnosis(es) (1) Osteoarthritis of left hip Current Visit: Yes Status: Acute (2) S/P total hip arthroplasty Current Visit: Yes Status: Acute Hospital Course: This is a 57-year-old female with known history of degenerative arthritis of the left hip. The patient presented for evaluation as an outpatient. After discussion and consideration patient elects to proceed with total hip arthroplasty. The patient is seen preoperatively by Dr. Charlton and medically cleared for surgery by their primary care physician. Patient is admitted to [facility] on 02/21/2023 for total hip arthroplasty. The procedure is performed without complication or sequelae. The patient is doing well postoperatively. Labs and vital signs are stable on day of discharge. On day of discharge patient's hip incision is healing well. There is minimal erythema. There is no drainage noted at this time. There is minimal soft tissue swelling to the hip and thigh. Patient has full foot and ankle motion without difficulty or pain. Calf is soft and nontender to palpation. Neurovascular status to the left lower extremity is intact. Patient is discharged home in good condition. Please see [facility] rec for accurate list of home medications. Plan - Discharge Summary Discharge Rx Participant: No New Discharge Prescriptions: New Aspirin [Adult Low Dose Aspirin EC] 81 mg PO BID 30 Days #60 tab diazePAM [Valium] 5 mg PO TID #21 tab HYDROcodone/APAP 7.5-325MG [[place] 7.5-325] 1 - 2 tab PO Q6H PRN #32 tab PRN Reason: Pain Sennosides [Senokot] 2 tab PO DAILY PRN #60 tablet PRN Reason: Constipation Ferrous Sulfate [Iron (65 MG Elemental)] 325 mg PO BID-W/MEALS tab Continue Zinc Gluconate [Zinc] 50 mg PO QAM Magnesium Oxide [Magnesium] 500 mg PO QAM Vitamin E (Dl,Tocopheryl Acet) [Vitamin E (400 Iu = 180 mg)] 1 cap PO DAILY metFORMIN HCL [Glucophage] 500 mg PO BID Metoprolol Tartrate 25 mg PO BID Meloxicam [Mobic] 15 mg PO DAILY PRN PRN Reason: Pain LORazepam [Ativan] 1 tab PO QID PRN PRN Reason: Anxiety FLUoxetine HCL [PROzac] 80 mg PO HS Aspirin 81 mg PO QAM Cyanocobalamin (Vitamin B-12) [Vitamin B-12] 2,500 mcg PO DAILY L.acidoph,Paracasei, B.lactis [Probiotic] 1 cap PO DAILY Ascorbic Acid [Vitamin C] 1,000 mg PO DAILY Multivitamins, Thera [Multivitamin (formulary)] 1 tab PO DAILY Rosuvastatin Calcium [Crestor] 40 mg PO QAM Lansoprazole [Prevacid] 30 mg PO QAM PRN PRN Reason: Heartburn Isosorbide Mononitrate ER [Imdur] 30 mg PO QAM Clopidogrel [Plavix] 75 mg PO QAM Proplant Complete Shake 1 dose PO DAILY Cholecalciferol (Vitamin D3) [Vitamin D3 (50 Mcg = 2000 Iu) Chew Tab] 50 mcg PO QAM Collagen Powder 2 tsp PO DAILY Discontinued HYDROcodone/APAP 7.5-325MG [[place] 7.5-325] 1 tab PO Q4-6H PRN PRN Reason: Pain Discharge Medication List Ascorbic Acid [Vitamin C] 1,000 mg PO DAILY 02/18/23 [History] Aspirin 81 mg PO QAM 02/18/23 [History] Cholecalciferol (Vitamin D3) [Vitamin D3 (50 Mcg = 2000 Iu) Chew Tab] 50 mcg PO QAM 02/18/23 [History] Clopidogrel [Plavix] 75 mg PO QAM 02/18/23 [History] Collagen Powder 2 tsp PO DAILY 02/18/23 [History] Cyanocobalamin (Vitamin B-12) [Vitamin B-12] 2,500 mcg PO DAILY 02/18/23 [History] FLUoxetine HCL [PROzac] 80 mg PO HS 02/18/23 [History] Isosorbide Mononitrate ER [Imdur] 30 mg PO QAM 02/18/23 [History] L.acidoph,Paracasei, B.lactis [Probiotic] 1 cap PO DAILY 02/18/23 [History] LORazepam [Ativan] 1 tab PO QID PRN 02/18/23 [History] Lansoprazole [Prevacid] 30 mg PO QAM PRN 02/18/23 [History] Magnesium Oxide [Magnesium] 500 mg PO QAM 02/18/23 [History] Meloxicam [Mobic] 15 mg PO DAILY PRN 02/18/23 [History] Metoprolol Tartrate 25 mg PO BID 02/18/23 [History] Multivitamins, Thera [Multivitamin (formulary)] 1 tab PO DAILY 02/18/23 [History] Proplant Complete Shake 1 dose PO DAILY 02/18/23 [History] Rosuvastatin Calcium [Crestor] 40 mg PO QAM 02/18/23 [History] Vitamin E (Dl,Tocopheryl Acet) [Vitamin E (400 Iu = 180 mg)] 1 cap PO DAILY 02/18/23 [History] Zinc Gluconate [Zinc] 50 mg PO QAM 02/18/23 [History] metFORMIN HCL [Glucophage] 500 mg PO BID 02/18/23 [History] Aspirin [Adult Low Dose Aspirin EC] 81 mg PO BID 30 Days #60 tab 02/21/23 [Rx] HYDROcodone/APAP 7.5-325MG [[place] 7.5-325] 1 - 2 tab PO Q6H PRN #32 tab 02/21/23 [Rx] Sennosides [Senokot] 2 tab PO DAILY PRN #60 tablet 02/21/23 [Rx] diazePAM [Valium] 5 mg PO TID #21 tab 02/23/23 [Rx] Ferrous Sulfate [Iron (65 MG Elemental)] 325 mg PO BID-W/MEALS tab 02/24/23 [Rx ] Follow up Appointment(s)/Referral(s): Surya Charlton DO [Doctor of Osteopathic Medicine] - 03/07/23 3:00 pm [facility] Visiting Nurse, [NON-STAFF] - 1-2 Days ([facility] will call you to schedule your in home physical therapy visits. ) Activity/Diet/Wound Care/Special Instructions: Weightbearing as tolerated with walker. Leave dressing intact. Dressing may be removed by home care nurse or by patient in 7 days. Then change dressing twice daily until follow up. May shower with initial dressing intact and after removal. If dressing become saturated, please remove. Please resume Plavix and take aspirin 81mg twice daily for 30 days after surgery to help prevents blood clots. Recommend use of compression stockings daily until follow up to help prevent swelling and blood clots. May remove at night before sleeping. Please follow-up with [facility] in 2 weeks and call with any questions or concerns, .
--- NOTE | 2023-02-24 14:49 | P.PN ---
Progress Note - Text Progress Note Date: 02/24/23 - Chief Complaint Left hip surgery Hospital course: Pleasant 57-year-old patient, follows with Dr. Mariposa Willingham. Chronic stable medical conditions include CAD with stent, COPD, diabetes, GERD, hypertension. Coronary stent about 5 years ago. Underwent left total hip arthroplasty. Painful at the operative site. No nausea vomiting. No chest pain no shortness of breath. Sitting up in a chair. February 23: This morning patient has significant nausea and pain. Has been up to the bathroom. Did eat some. No chest pain and breathing stable. Hinojosa discontinued. Did get up in a chair. February 24: Doing much better. Pain better control. Tolerating diet. Up to the bathroom. Discussed with patient. Active Medications Hydrocodone Bitart/Acetaminophen (Hydrocodone/Apap 7.5-325mg 1 Each Tab) 1 each PO Q6H PRN PRN Reason: Pain Scale 1 to 5 Stop: 03/23/23 11:15 Hydrocodone Bitart/Acetaminophen (Hydrocodone/Apap 7.5-325mg 1 Each Tab) 2 each PO Q6H PRN PRN Reason: Pain Scale 6 to 10 Stop: 03/23/23 11:15 Last Admin: 02/24/23 13:44 Dose: 2 each Ascorbic Acid (Ascorbic Acid 500 Mg Tab) 1,000 mg PO DAILY [facility] Last Admin: 02/24/23 07:51 Dose: 1,000 mg Aspirin (Aspirin 81 Mg) 81 mg PO [facility] Last Admin: 02/24/23 07:51 Dose: 81 mg Atorvastatin Calcium (Atorvastatin 80 Mg Tab) 80 mg PO [facility] Last Admin: 02/24/23 07:51 Dose: 80 mg Cholecalciferol (Cholecalciferol 25 Mcg (1000 Iu) Tablet) 50 mcg PO [facility] Last Admin: 02/24/23 07:50 Dose: 50 mcg Clopidogrel Bisulfate (Clopidogrel 75 Mg Tab) 75 mg PO DAILY [facility] Stop: 03/24/23 09:01 Last Admin: 02/24/23 07:51 Dose: 75 mg Cyanocobalamin (Cyanocobalamin 500 Mcg Tab) 2,500 mcg PO DAILY [facility] Last Admin: 02/24/23 07:51 Dose: 2,500 mcg Diazepam (Diazepam 5 Mg Tab) 5 mg PO TID PRN PRN Reason: Pain Last Admin: 02/24/23 10:21 Dose: 5 mg Ferrous Sulfate (Ferrous Sulfate 325 Mg Tab) 325 mg PO BID-W/MEALS [facility] Last Admin: 02/24/23 07:51 Dose: 325 mg Fluoxetine HCl (Fluoxetine Hcl 20 Mg Cap) 80 mg PO HS [facility] Last Admin: 02/23/23 21:04 Dose: 80 mg Hydromorphone HCl (Hydromorphone 0.5 Mg/0.5 Ml Syringe) 0.5 mg IVP Q3HR PRN PRN Reason: Pain Scale 4 to 6 Stop: 03/23/23 11:13 Hydromorphone HCl (Hydromorphone 1 Mg/Ml 1 Ml Syringe) 1 mg IVP Q3HR PRN PRN Reason: Pain Scale 7 to 10 Stop: 03/23/23 11:13 Last Admin: 02/23/23 18:35 Dose: 1 mg Hydromorphone HCl (Hydromorphone 0.5 Mg/0.5 Ml Syringe) 0.25 mg IVP Q3HR PRN PRN Reason: Pain Scale 1 to 3 Stop: 03/23/23 11:13 Lactated Ringer's (Lactated Ringers) 1,000 mls @ 20 mls/hr IV .Q24H [facility] Last Admin: 02/24/23 06:02 Dose: Not Given Sodium Chloride (Saline 0.9%) 1,000 mls @ 70 mls/hr IV .[id number] [facility] Stop: 03/23/23 11:16 Last Admin: 02/23/23 19:42 Dose: Not Given Isosorbide Mononitrate (Isosorbide Mononitrate Er 30 Mg Tab.Er.24h) 30 mg PO QAM [facility] Last Admin: 02/24/23 07:50 Dose: 30 mg Ketorolac Tromethamine (Ketorolac 15 Mg/Ml 1 Ml Vial) 15 mg IVP BID [facility] Stop: 02/27/23 09:01 Last Admin: 02/24/23 07:52 Dose: 15 mg Lactobacillus Acidophilus (Lactobacillus Acidophilus/Pect 1 Each Capsule) 1 each PO DAILY [facility] Last Admin: 02/24/23 07:50 Dose: 1 each Lidocaine HCl (Lidocaine 1% (10mg/Ml) For Iv Start) 0.1 ml INTRADERMA PER PROTOCOL PRN PRN Reason: IV Start Lorazepam (Lorazepam 1 Mg Tab) 1 mg PO QID PRN PRN Reason: Anxiety Last Admin: 02/22/23 20:32 Dose: 1 mg Magnesium Hydroxide (Magnesium Hydroxide 2,400 Mg/30 Ml Cup) 2,400 mg PO DAILY PRN PRN Reason: Constipation Stop: 03/23/23 11:13 Magnesium Oxide (Magnesium Oxide 400 Mg Tab) 400 mg PO QAM [facility] Last Admin: 02/24/23 07:51 Dose: 400 mg Metformin HCl (Metformin 500 Mg Tab) 500 mg PO BID-W/MEALS [facility] Last Admin: 02/24/23 07:51 Dose: 500 mg Metoprolol Tartrate (Metoprolol Tartrate 25 Mg Tab) 25 mg PO BID [facility] Last Admin: 02/24/23 07:51 Dose: 25 mg Multivitamins (Multivitamins, Thera 1 Each Tab) 1 each PO DAILY [facility] Last Admin: 02/24/23 07:51 Dose: 1 each Naloxone HCl (Naloxone 0.4 Mg/Ml 1 Ml Vial) 0.2 mg IV Q2M PRN PRN Reason: Opioid Reversal Stop: 03/23/23 11:13 Ondansetron HCl (Ondansetron 4 Mg/2 Ml Vial) 4 mg IVP Q8H PRN PRN Reason: Nausea And Vomiting Stop: 03/23/23 11:13 Pantoprazole Sodium (Pantoprazole 40 Mg Tablet) 40 mg PO QAM PRN PRN Reason: Heartburn Senna/Docusate Sodium (Sennosides-Docusate Sodium 1 Each Tab) 2 each PO HS [facility] Stop: 03/23/23 21:01 Last Admin: 02/23/23 21:21 Dose: Not Given Vitamin E (Vitamin E (Dl,Tocopheryl Acet) 400 Unit (180 Mg) Cap) 400 unit PO DAILY [facility] Last Admin: 02/24/23 07:52 Dose: 400 unit Zinc Sulfate (Zinc Sulfate 220 Mg Cap) 220 mg PO QAM [facility] Last Admin: 02/24/23 08:06 Dose: 220 mg Zolpidem Tartrate (Zolpidem 5 Mg Tab) 5 mg PO ONCE PRN PRN Reason: Insomnia Last Admin: 02/22/23 23:28 Dose: 5 mg Past medical history to include: CAD with stent, COPD, diabetes, GERD, hypertension, hyperlipidemia GERD, osteoarthritis. Bipolar. ADHD. Social history: . Patient smoked for 37 years stopped in 2015. Alcohol rarely. Physical examination: VITAL SIGNS: 99.6, 89, 19, 126/68, 96% room air GENERAL: Comfortable EYES: Pupils equal. Conjunctiva normal. HEENT: External appearance of nose and ears normal, oral cavity grossly normal. NECK: JVD not raised; masses not palpable. HEART: First and second heart sounds are normal; no edema. LUNGS: Respiratory rate normal; decreased breath sound. ABDOMEN: Soft, nontender, liver spleen not palpable, no masses palpable. PSYCH: Alert and oriented x3; mood and affect normal. MUSCULOSKELETAL:No Clubbing/cyanosis;muscles-grossly intact. UA. Dressing over left hip incision site INVESTIGATIONS, reviewed in the clinical context: February 24: Hemoglobin 11 February 22: White count 10.7 hemoglobin 11.8 platelets 175 February 21: White count 6.2 hemoglobin 13.5 platelets 250 February 09: Potassium 4.8 creatinine 0.7 Assessment plan: --Left total hip arthroplasty Pain control. Aspirin twice a day for DVT prophylaxis per surgery -CAD with a prior history of stent. Approximately 5 years ago. Aspirin. Lipitor. Plavix. Lopressor -Primary osteoarthritis Pain control when necessary -Bipolar disorder Prozac 80 mg daily at bedtime Ativan when necessary -GERD Prevacid -Acute postprocedure blood loss anemia expected from surgery Ferrous sulfate -Essential hypertension Metoprolol 25 mg twice a day -Hyperlipidemia Crestor 40 mg a day -Diabetes mellitus type 2 on oral hypoglycemic Glucophage. Follow Accu-Cheks with sliding skill insulin. Discussed. Follow-up with PCP upon discharge. Thank you Dr. Charlton Past Medical History Past Medical History: Coronary Artery Disease (CAD), Cancer, COPD, Diabetes Mellitus, GERD/Reflux, Hyperlipidemia, Osteoarthritis (OA) Additional Past Medical History / Comment(s): NIDDM type II, skin cancer with removal History of Any Multi-Drug Resistant Organisms: None Reported Past Surgical History: Section, Heart Catheterization, Heart Catheterization With Stent, Hysterectomy, Joint Replacement, Orthopedic Surgery Additional Past Surgical History / Comment(s): ORIF RT ANKLE X 2 for crushed ankle/hardware since removed, total right hip 2018 Past Anesthesia/Blood Transfusion Reactions: No Reported Reaction Date of Last Stent Placement:: 2017 Past Psychological History: ADD/ADHD, Bipolar Smoking Status: Former smoker Past Alcohol Use History: Rare Additional Past Alcohol Use History / Comment(s): Pt started smoking in 1978 and quit in 2016 Past Drug Use History: Marijuana Additional Drug Use History / Comment(s): Past smoked marijuana and then once a few days ago/one hit. - Past Family History Mother Family Medical History: Cancer Additional Family Medical History / Comment(s): Kidney cancer with mets. Medications and Allergies Home Medications Medication Instructions Recorded Confirmed Type Ascorbic Acid [Vitamin C] 1,000 mg PO DAILY 02/18/23 02/21/23 History Aspirin 81 mg PO QAM 02/18/23 02/21/23 History Cholecalciferol (Vitamin D3) 50 mcg PO QAM 02/18/23 02/21/23 History [Vitamin D3 (50 Mcg = 2000 Iu) Chew Tab] Clopidogrel [Plavix] 75 mg PO QAM 02/18/23 02/21/23 History Collagen Powder 2 tsp PO DAILY 02/18/23 02/21/23 History Cyanocobalamin (Vitamin B-12) 2,500 mcg PO DAILY 02/18/23 02/21/23 History [Vitamin B-12] FLUoxetine HCL [PROzac] 80 mg PO HS 02/18/23 02/21/23 History HYDROcodone/APAP 7.5-325MG [[place] 1 tab PO Q4-6H PRN 02/18/23 02/21/23 History 7.5-325] Isosorbide Mononitrate ER [Imdur] 30 mg PO QAM 02/18/23 02/21/23 History L.acidoph,Paracasei, B.lactis 1 cap PO DAILY 02/18/23 02/21/23 History [Probiotic] LORazepam [Ativan] 1 tab PO QID PRN 02/18/23 02/21/23 History Lansoprazole [Prevacid] 30 mg PO QAM PRN 02/18/23 02/21/23 History Magnesium Oxide [Magnesium] 500 mg PO QAM 02/18/23 02/21/23 History Meloxicam [Mobic] 15 mg PO DAILY PRN 02/18/23 02/21/23 History Metoprolol Tartrate 25 mg PO BID 02/18/23 02/21/23 History Multivitamins, Thera [Multivitamin 1 tab PO DAILY 02/18/23 02/21/23 History (formulary)] Proplant Complete Shake 1 dose PO DAILY 02/18/23 02/21/23 History Rosuvastatin Calcium [Crestor] 40 mg PO QAM 02/18/23 02/21/23 History Vitamin E (Dl,Tocopheryl Acet) 1 cap PO DAILY 02/18/23 02/21/23 History [Vitamin E (400 Iu = 180 mg)] Zinc Gluconate [Zinc] 50 mg PO QAM 02/18/23 02/21/23 History metFORMIN HCL [Glucophage] 500 mg PO BID 02/18/23 02/21/23 History Aspirin [Adult Low Dose Aspirin EC] 81 mg PO BID 30 Days #60 tab 02/21/23 Rx HYDROcodone/APAP 7.5-325MG [[place] 1 - 2 tab PO Q6H PRN #32 tab 02/21/23 Rx 7.5-325] Sennosides [Senokot] 2 tab PO DAILY PRN #60 tablet 02/21/23 Rx Allergies Allergy/AdvReac Type Severity Reaction Status Date / Time No Known Allergies Allergy Verified 02/21/23 08:07
[2023-02-24 15:48] VITALS: BP 126/68; PULSE 69; TEMP 99.6
[2023-02-24 15:53] VITALS: RESP 19
== END 2023-02-24 15:52 | disposition home health service (06) ==
LOC: OR 07:19 → EDSTATUS 09:10 → 4SSUR 11:07 → OR 02-22 09:22
PROVIDERS: ADMIT Orthopaedic Surgery; ATTEND Orthopaedic Surgery
DX: M16.12 Unilateral primary osteoarthritis, left hip (principal); D50.0 Iron deficiency anemia secondary to blood loss (chronic); I25.10 Atherosclerotic heart disease of native coronary artery without angina pectoris; Z95.5 Presence of coronary angioplasty implant and graft; J44.9 Chronic obstructive pulmonary disease, unspecified; E11.9 Type 2 diabetes mellitus without complications; K21.9 Gastro-esophageal reflux disease without esophagitis; I10 Essential (primary) hypertension; E78.5 Hyperlipidemia, unspecified; F31.9 Bipolar disorder, unspecified; Z79.84 Long term (current) use of oral hypoglycemic drugs; Z79.02 Long term (current) use of antithrombotics/antiplatelets; Z79.82 Long term (current) use of aspirin; Z79.899 Other long term (current) drug therapy; F90.9 Attention-deficit hyperactivity disorder, unspecified type; Z87.891 Personal history of nicotine dependence; Z85.828 Personal history of other malignant neoplasm of skin; Z98.891 History of uterine scar from previous surgery; Z90.710 Acquired absence of both cervix and uterus; Z96.641 Presence of right artificial hip joint; Z98.890 Other specified postprocedural states; Z80.51 Family history of malignant neoplasm of kidney
CPT/HCPCS: 97116 ×2; 97161; 97535; 97165; 64447; 86900; 86901; 86902; 85025 ×3; 86850; 86870; 86880; 73501; G0378 ×3; C1776; J2250; J1100; J0690 ×3; J2405; J3010; J1170 ×4; J2795; J1885 ×3; J2704; J2371